=== PATIENT | male | born 1990 | race Caucasian/White ===

== ENCOUNTER 2018-10-28 02:42 | Inpatient (IN) | payer SELFPAY ==
[2018-10-28] VITALS (22 sets, daily range): BP systolic 145–196; BP diastolic 67–108; PULSE 90–108; RESP 16–23; TEMP 36.6–36.9; O2SAT 85–95; BMI 72.4; BMI 72.5
--- NOTE | 2018-10-28 02:55 | PCM.HP.STD ---
Problem List (1) Acute hypoxemic respiratory failure Status: Acute History of Present Illness Date of Admission: 10/28/18 Chief Complaint: shortness of breath The patient is a 28 year old M with a signification history of former tobacco use and super morbid obesity who presents with 2-3 weeks history of progressively worsening shortness of breath on exertion. Associated with his symptoms is substernal chest pain that is brought on by taking a deep breath. He denies any nausea. He vomited about a week ago but he attributed this to a food poisoning which the members of his family also had. He denies diaphoresis. He denies any fever or chills. Although on the day of presentation to the outside Hospital that he came from, he felt cold. Patient reports orthopnea in the last month requiring him to sleep in a recliner. Patient presented initially to [facility]. His oxygen saturation was 40-70% on room air. Emergency department doctor at [facility] to transfer patient because patient was too hypoxic to be admitted. Chest Xray [facility] showed cardiomegaly. Patient had leukocytosis with a white count of 17.4. He had a BNP of 188(normal 0-125). ABG showed PaO2 of 46 with PCO2 of 50. Bicarbonate was 32. On 3L at outside Hospital his oxygen saturation was from 86% to 92% Because patient has a large body habitus CTPA could not be done. Patient was treated with Rocephin and azithromycin for probable community acquired pneumonia On admission here on 4 L his oxygen saturation was around 89%. Patient reports that he has not seen a doctor in over 2 years. Past Medical History Allergies No Known Allergies Allergy (Verified 10/28/18 02:29) Surgical History: no surgical history Lives: Alone Smoking Status: Former smoker - He used to to tobacco but never smoked. Alcohol: Rare - *Family History Paternal History Items: Heart Disease, Hypertension Maternal History Items: Diabetes, Heart Disease, Hypertension Review of Systems Constitutional: Denies: Chills, Fever, Weight Change HEENT: Denies: Head Aches, Sinus Congestion, Sinus Drainage Cardiovascular: Reports: Chest Pain, Orthopnea. Denies: Palpitations Respiratory: Reports: Cough - chronic, Shortness of breath upon exertion. Denies: Shortness of breath at rest, Sputum production Gastrointestinal: Denies: Abdominal Pain, Nausea, Vomiting Genitourinary: Denies: Dysuria Musculoskeletal: Reports: - - Bilateral knee pain for which he has been using CBD oil.. Denies: Joint Pain Skin: Denies: Rash, Wounds Neurological: Denies: Numbness, Tingling, Focal weakness Psychiatric: Denies: Anxiety, Depression, Homicidal Ideations, Suicidal Ideations Hematologic/ Lymphatic: Denies: Easy Bruising, Easy Bleeding VTE Information - Inpt Only VTE Present on Admission: No VTE Mechan Device Prophylaxis: None VTE Pharm Prophylaxis ordered?: Yes Patient Problems: Active and Suspected Problems Acute hypoxemic respiratory failure (Acute) - Physical Exam General: Alert, Oriented x3, Cooperative HEENT: Atraumatic, PERRLA, EOMI, Normocephalic Neck: Supple, No JVD, Negative Carotid Bruits Lungs: Diminished - May be from body habitus. Cardiovascular: Regular rate, No murmurs Abdomen: Bowel Sounds Present, Soft, Non Tender Extremities: No edema, Capillary Refill Less than 3 Seconds Skin: No rashes, No breakdown Musculoskeletal: No Tenderness to Palpation of Joints or Extremities Neurological: Neuro grossly intact Psych/Mental Status: Normal Affect, Appropriate Weight: 229.064 kg Body Mass Index (BMI) 72.4 Assessment/Plan All Active Problems Acute hypoxemic respiratory failure (Acute) The patient is a 28 year old M with a signification history of former tobacco use and super morbid obesity who presents with 2-3 weeks history of progressively worsening shortness of breath on exertion and noted to have severe hypoxia with pleuritic chest pain; and leukocytosis.. Acute hypoxemic respiratory failure Etiology is unclear at this time. Chest x-ray at outside hospital was interpreted as borderline cardiomegaly. With no other abnormality but the study was suboptimal due to body habitus. Because of leukocytosis it was presumed that patient has pneumonia and Rocephin and azithromycin was started from outside hospital. We will continue Rocephin and azithromycin for probable committee acquired pneumonia. A different diagnosis includes pulmonary embolism; heart failure or other. His leukocytosis could be reactive. Of note patient has sinus tachycardia and pleuritic chest pain. He may also be having some underlying pickwickian syndrome. Supplemental oxygen to maintain saturation more than 90%. Strep pneumonia antigen and Legionella antigen ordered. Mycoplasma antigen ordered. Respiratory pathogen panel ordered. CBC and BMP in a.m. If patient does not improve consider pulmonology consult. Chest pain Chest pain is pleuritic and he associates with his shortness of breath. EKG shows sinus tach We will order cardiac enzymes for now. Hypertension Systolic blood pressure at the hospital was 165/115; 169/101; His blood pressure here was 181/108. Since his blood pressure is more than 160 we will go ahead and start him on low-dose hydrochlorothiazide. Trend blood pressure and adjust blood pressure medication. DVT prophylaxis Because of his body habitus we will start him on Lovenox 40 mg twice daily. Code Visit Inpatient E&M: 13988 Init Hosp L3
--- NOTE | 2018-10-28 02:56 | CT_ITS ---
HISTORY: SOB X 2-3 WEEKS BUT WORSE TONIGHT,HYPOXICOBESE PT 505 LBS,HARD TIME HOLDING BREATH TECHNIQUE: Helically acquired images were obtained of the chest following IV contrast as per pulmonary angiogram protocol with 3D reconstructions. A radiation dose optimization technique was used for this scan. IV Contrast dosage and agent: 100 cc Isovue-370 contrast COMPARISON: None FINDINGS: Patient obesity which limits diagnostic detail. Left lung infiltrates compatible with pneumonia with infiltrates most notable within the superior segment of the left lower lobe and posterior segment of the left upper lobe. Additional right lower lobe infiltrate. No pleural effusion. Evaluation of the pulmonary arterial system partly limited related to body habitus. The main, segmental, and visualized subsegmental pulmonary arteries appear normal. No PE. Thoracic aorta is normal in caliber without aneurysm or dissection. Cardiomegaly. No pericardial effusion. CT/CTA Chest W/WO Contrast IMPRESSION: 1. Bilateral pulmonary infiltrates, worse on the left, compatible with pneumonia. 2. Cardiomegaly. No PE. 3. Limited diagnostic detail related to patient obesity Individualized dose optimization techniques were used for this CT. at 0432 Reported and signed by: Karsten Benz MD Electronically Signed: Karsten Benz, at 4:30 EST Tel , Service support ,
--- NOTE | 2018-10-28 03:04 | HP.PCM_ITS ---
Problem List (1) Acute hypoxemic respiratory failure Status: Acute History of Present Illness Date of Admission: 10/28/18 Chief Complaint: shortness of breath The patient is a 28 year old M with a signification history of former tobacco use and super morbid obesity who presents with 2-3 weeks history of progressively worsening shortness of breath on exertion. Associated with his symptoms is substernal chest pain that is brought on by taking a deep breath. He denies any nausea. He vomited about a week ago but he attributed this to a food poisoning which the members of his family also had. He denies diaphoresis. He denies any fever or chills. Although on the day of presentation to the outside Hospital that he came from, he felt cold. Patient reports orthopnea in the last month requiring him to sleep in a recliner. Patient presented initially to [facility]. His oxygen saturation was 40- 70% on room air. Emergency department doctor at [facility] to transfer patient because patient was too hypoxic to be admitted. Chest Xray [facility] showed cardiomegaly. Patient had leukocytosis with a white count of 17.4. He had a BNP of 188(normal 0-125). ABG showed PaO2 of 46 with PCO2 of 50. Bicarbonate was 32. On 3L at outside Hospital his oxygen saturation was from 86% to 92% Because patient has a large body habitus CTPA could not be done. Patient was treated with Rocephin and azithromycin for probable community acqu ired pneumonia On admission here on 4 L his oxygen saturation was around 89%. Patient reports that he has not seen a doctor in over 2 years. Past Medical History Allergies No Known Allergies Allergy (Verified 10/28/18 02:29) Surgical History: no surgical history Lives: Alone Smoking Status: Former smoker - He used to to tobacco but never smoked. Alcohol: Rare - *Family History Paternal History Items: Heart Disease, Hypertension Maternal History Items: Diabetes, Heart Disease, Hypertension Review of Systems Constitutional: Denies: Chills, Fever, Weight Change HEENT: Denies: Head Aches, Sinus Congestion, Sinus Drainage Cardiovascular: Reports: Chest Pain, Orthopnea. Denies: Palpitations Respiratory: Reports: Cough - chronic, Shortness of breath upon exertion. Denies: Shortness of breath at rest, Sputum production Gastrointestinal: Denies: Abdominal Pain, Nausea, Vomiting Genitourinary: Denies: Dysuria Musculoskeletal: Reports: - - Bilateral knee pain for which he has been using CBD oil.. Denies: Joint Pain Skin: Denies: Rash, Wounds Neurological: Denies: Numbness, Tingling, Focal weakness Psychiatric: Denies: Anxiety, Depression, Homicidal Ideations, Suicidal Ideations Hematologic/ Lymphatic: Denies: Easy Bruising, Easy Bleeding VTE Information - Inpt Only VTE Present on Admission: No VTE Mechan Device Prophylaxis: None VTE Pharm Prophylaxis ordered?: Yes Patient Problems: Active and Suspected Problems Acute hypoxemic respiratory failure (Acute) - Physical Exam General: Alert, Oriented x3, Cooperative HEENT: Atraumatic, PERRLA, EOMI, Normocephalic Neck: Supple, No JVD, Negative Carotid Bruits Lungs: Diminished - May be from body habitus. Cardiovascular: Regular rate, No murmurs Abdomen: Bowel Sounds Present, Soft, Non Tender Extremities: No edema, Capillary Refill Less than 3 Seconds Skin: No rashes, No breakdown Musculoskeletal: No Tenderness to Palpation of Joints or Extremities Neurological: Neuro grossly intact Psych/Mental Status: Normal Affect, Appropriate Weight: 229.064 kg Body Mass Index (BMI) 72.4 Assessment/Plan All Active Problems Acute hypoxemic respiratory failure (Acute) The patient is a 28 year old M with a signification history of former tobacco use and super morbid obesity who presents with 2-3 weeks history of pr ogressively worsening shortness of breath on exertion and noted to have severe hypoxia with pleuritic chest pain; and leukocytosis.. Acute hypoxemic respiratory failure Etiology is unclear at this time. Chest x-ray at outside hospital was interpreted as borderline cardiomegaly. With no other abnormality but the study was suboptimal due to body habitus. Because of leukocytosis it was presumed that patient has pneumonia and Rocephin and azithromycin was started from outside hospital. We will continue Rocephin and azithromycin for probable committee acquired pneumonia. A different diagnosis includes pulmonary embolism; heart failure or other. His leukocytosis could be reactive. Of note patient has sinus tachycardia and pleuritic chest pain. He may also be having some underlying pickwickian syndrome. Supplemental oxygen to maintain saturation more than 90%. Strep pneumonia antigen and Legionella antigen ordered. Mycoplasma antigen ordered. Respiratory pathogen panel ordered. CBC and BMP in a.m. If patient does not improve consider pulmonology consult. Chest pain Chest pain is pleuritic and he associates with his shortness of breath. EKG shows sinus tach We will order cardiac enzymes for now. Hypertension Systolic blood pressure at the hospital was 165/115; 169/101; His blood pressure here was 181/108. Since his blood pressure is more than 160 we will go ahead and start him on low- dose hydrochlorothiazide. Trend blood pressure and adjust blood pressure medication. DVT prophylaxis Because of his body habitus we will start him on Lovenox 40 mg twice daily. Code Visit Inpatient E&M: 96982 Init Hosp L3
--- NOTE | 2018-10-28 03:04 | ECHOCS_ITS ---
Reason For Study: Dyspnea/SOB Procedure This was a 2D Doppler, Color Flow transthoracic echocardiogram. The study was technically difficult. Contrast injection was performed. Exam performed portable in ED. Left Ventricle Normal LV size. Moderate concentric left ventricular hypertrophy. Left ventricular systolic function is normal. The estimated ejection fraction is 65 %. Normal diastology for age. No regional wall motion abnormalities noted. Right Ventricle Normal RV size. Normal systolic function. Atria The left atrium is mildly enlarged. The right atrium is mildly enlarged. Mitral Valve Normal mitral valve. Tricuspid Valve Normal tricuspid valve. Aortic Valve The aortic valve is not well visualized. Pulmonic Valve Normal pulmonic valve. Great Vessels Normal aortic root. The pulmonary artery is normal size. Normal inferior vena cava. Pericardium/Pleural No pericardial effusion. Medication Definity0.2ml given slow IV push to enhance endocardial definition. MMode/2D Measurements & Calculations LVIDd: 5.2 cm IVSd: 1.6 cm Ao root diam: 3.1 cm LVIDs: 3.4 cm LVPWd: 1.3 cm RVDd: 4.3 cm FS: 34.5 % LAV(MOD-bp): 69.2 ml LVAd ap4: 35.8 cm2 SV(MOD-sp4): 78.4 ml LAV(MOD-bp) Indexed: 22.4 ml/m2 EDV(MOD-sp4): 117.0 ml LAV(MOD-sp2): 73.3 ml EDV(sp4-el): 122.3 ml LAV(MOD-sp4): 67.0 ml LVAs ap4: 19.4 cm2 ESV(MOD-sp4): 38.6 ml ESV(sp4-el): 39.8 ml EF(MOD-sp4): 67.0 % EF(sp4-el): 67.5 % SV(sp4-el): 82.5 ml LA A4 area: 23.4 cm2 LA dimension(2D): 4.7 cm RA A4 area: 26.3 cm2 Doppler Measurements & Calculations MV E max chepe: 78.0 cm/sec Lat Peak E' Chepe: 12.3 cm/sec Med Peak E' Chepe: 9.2 cm/sec MV A max chepe: 52.5 cm/sec E/E' lat: 6.3 E/E' med: 8.5 MV E/A: 1.5 Ao V2 max: 135.8 cm/sec LV V1 max: 115.2 cm/sec PA V2 max: 97.2 cm/sec Ao max P.4 mmHg LV V1 max P.3 mmHg Ao V2 mean: 96.7 cm/sec Ao mean P.2 mmHg Ao V2 VTI: 26.8 cm Interpretation Summary Normal LV size. Moderate concentric left ventricular hypertrophy. Left ventricular systolic function is normal. The estimated ejection fraction is 65 %. Normal diastology for age. Contrast injection was performed. Ordering Physician: Alexandro Treadwell Performed By: Melody Phillip RDCS, RVT
[2018-10-28 03:50] LABS: Hematocrit 44.6 % (40-54); Hemoglobin 13.3 g/dl (13.0-16.5); Mean Corp Hgb Conc 29.8 g/gl (32-36); Mean Corpuscular Hgb 22.5 pg (27.0-32.0); Mean Corpuscular Volume 75.5 fL (80-94); Mean Platelet Vol. 9.9 fl (6.2-12.0); Platelet Count 315 K/mm3 (150-450); RBC Distribution Width CV 16.1 % (11.6-14.6); RBC Distribution Width SD 44.1 fl (35.1-43.9); Red Blood Count 5.91 M/mm3 (4.6-6.2); White Blood Count 13.7 K/mm3 (4.4-11.0)
[2018-10-28 03:51] LABS: Scan Indicated on CBC? Y/N NO
[2018-10-28 04:06] LABS: Anion Gap 8 (5-15); BUN 11 mg/dL (7-18); BUN/Creat Ratio 13.1 RATIO (10-20); Calcium,Total 8.3 mg/dL (8.5-10.1); Chloride 102 mmol/L (98-107); Creatinine, Serum 0.84 mg/dL (0.70-1.30); EST Glomerular Filtration Rate 115 mL/min (>60); Est Glom Filt Rate - Afr Amer 140 mL/min (>60); Estimated Creatinine Clearance 133.98 ml/min; Glucose 113 mg/dL (74-106); Potassium 3.8 mmol/L (3.5-5.1); Sodium Level 141 mmol/L (136-145)
[2018-10-28] MEDS: hydroCHLOROthiazide 12.5mg 12.5 MG PO (04:07)
[2018-10-28] MEDS: 0.9% NaCl Peripheral Flush Adult/Peds IV ×2 (04:08→18:36)
--- NOTE | 2018-10-28 05:45 | NURSING ---
Unable to obtain admission weight due to patient unable to lay flat. Used weight from Yari Dickens that nurse gave in nurse to nurse report and patient's verbal weight. egg gatherer aware
[2018-10-28] MEDS: Ipratropium/Albuterol Sulfate 3 ML AMPUL.NEB INHALATION ×3 (06:53→19:40)
[2018-10-28] MEDS: Enoxaparin 40 MG/0.4 ML Syringe SC ×2 (10:43→21:13)
[2018-10-28] MEDS: guaiFENesin 1,200 MG Tablet 1200 MG PO ×2 (10:43→21:13)
--- NOTE | 2018-10-28 13:48 | PCM.PROGNOTE ---
<Sudhir Oseguera - Last Filed: 10/28/18 13:48> Patient Problems: Active and Suspected Problems Acute hypoxemic respiratory failure (Acute) Subjective: Pt remains SOB with exertion, at rest on O2 he denies SOB. Nursing indicates that they have observed periodic apneic events with sudden waking and gasping. BP has improved. Pt denies fever or chills. No cough. Pt denies sick contacts. No further chest pain. - Physical Exam General: Alert, Oriented x3, Cooperative HEENT: Atraumatic, PERRLA, EOMI, Normocephalic Neck: Supple, No JVD, Negative Carotid Bruits Lungs: Clear to auscultation, Normal air movement, Rales - faint rales BL bases Cardiovascular: Regular rate, No murmurs Abdomen: Bowel Sounds Present, Soft, Non Tender, Obese Extremities: No edema, Capillary Refill Less than 3 Seconds Skin: No rashes, No breakdown Musculoskeletal: No Tenderness to Palpation of Joints or Extremities Neurological: Cranial nerves II-XII grossly intact Psych/Mental Status: Normal Affect, Appropriate, Alert and oriented to time, place, person, mood and affect Vital Signs Temp Pulse Resp BP Pulse Ox 97.8 F 96 18 160/90 H 94 10/28/18 10:32 10/28/18 12:54 10/28/18 12:54 10/28/18 10:32 10/28/18 10:32 Oxygen Flow Rate (L/min) 5 Oxygen Delivery Method Nasal Cannula Weight: 504 lb 15.994 oz Body Mass Index (BMI) 72.4 Intake and Output for Last 24 Hours 10/26/18 10/27/18 10/28/18 23:59 23:59 23:59 Intake Total 120 / 120 Balance 120 / 120 Microbiology Past 72 Hours 10/28/18 08:31 Respiratory Panel (PCR) - Final Mucosa - Nasopharyngeal 10/28/18 06:35 Legionella Antigen - Final Urine, Clean Catch 10/28/18 06:35 Streptococcus pneumoniae Antigen (M - Final Urine, Clean Catch Laboratory Tests Past 24 Hrs 10/28/18 10/28/18 10/28/18 03:36 03:36 03:36 WBC 13.7 H RBC 5.91 Hgb 13.3 Hct 44.6 MCV 75.5 L MCH 22.5 L MCHC 29.8 L RDW 16.1 H RDW Differential 44.1 H Plt Count 315 MPV 9.9 Sodium 141 Potassium 3.8 Chloride 102 Carbon Dioxide 31.0 Anion Gap 8 BUN 11 Creatinine 0.84 Estim Creat Clear Calc 133.98 Est GFR (MDRD) Af Amer 140 Est GFR (MDRD) Non-Af 115 BUN/Creatinine Ratio 13.1 Glucose 113 H Calcium 8.3 L Troponin I 0.040 Mycoplasma pneumon IgG Pending Mycoplasma pneumon IgM Pending 10/28/18 10/28/18 06:00 09:00 WBC RBC Hgb Hct MCV MCH MCHC RDW RDW Differential Plt Count MPV Sodium Potassium Chloride Carbon Dioxide Anion Gap BUN Creatinine Estim Creat Clear Calc Est GFR (MDRD) Af Amer Est GFR (MDRD) Non-Af BUN/Creatinine Ratio Glucose Calcium Troponin I 0.037 0.026 Mycoplasma pneumon IgG Mycoplasma pneumon IgM Medical Necessity - Tobacco Use Smoking Status: Former smoker - He used to to tobacco but never smoked. Assessment/Plan All Active Problems Acute hypoxemic respiratory failure (Acute) 1. Acute hypoxic respiratory failure 2/2 Acute sepsis 2/2 BL CAP - presumed Streptococcal, continue rocephin and azithro. Urine antigens neg, resp panel neg, mycoplasma antigen pending. Sputum culture if he is able to provide one. Wean O2 as tolerated. He does not use this at home, but was saturating supposedly in the 40s at the time of admission. Continue mucinex, IS/PEP therapy. 2. HTN - improved. Will need DC on antihtn meds. 3. Chest pain - negative EKG, negative tele, negative troponin x3. No further workup. CP is explained by pna, and no longer present. 4. Suspected sleep apnea/obesity hypoventilation syndrome - he has multiple risk factors for JANET and has been observed having classic apneic episodes while here by nursing staff. He needs a sleep study after DC and after pna resolved. 5. Morbid obesity - dietary eval/counselling. DVT ppx: lovenox DC planning: pt will likely not need PTOT, however may need home O2 depending on his course. This patient was seen by Sudhir Oseguera PA-C under the supervision of Doctor Faraz. <Jer Ruth F - Last Filed: 10/28/18 14:13> - Physical Exam Vital Signs Temp Pulse Resp BP Pulse Ox 97.8 F 96 18 160/90 H 94 10/28/18 10:32 10/28/18 12:54 10/28/18 12:54 10/28/18 10:32 10/28/18 10:32 Oxygen Flow Rate (L/min) 5 Oxygen Delivery Method Nasal Cannula Weight: 504 lb 15.994 oz Body Mass Index (BMI) 72.4 Intake and Output for Last 24 Hours 10/26/18 10/27/18 10/28/18 23:59 23:59 23:59 Intake Total 120 / 120 Balance 120 / 120 Microbiology Past 72 Hours 10/28/18 08:31 Respiratory Panel (PCR) - Final Mucosa - Nasopharyngeal 10/28/18 06:35 Legionella Antigen - Final Urine, Clean Catch 10/28/18 06:35 Streptococcus pneumoniae Antigen (M - Final Urine, Clean Catch Laboratory Tests Past 24 Hrs 10/28/18 10/28/18 10/28/18 03:36 03:36 03:36 WBC 13.7 H RBC 5.91 Hgb 13.3 Hct 44.6 MCV 75.5 L MCH 22.5 L MCHC 29.8 L RDW 16.1 H RDW Differential 44.1 H Plt Count 315 MPV 9.9 Sodium 141 Potassium 3.8 Chloride 102 Carbon Dioxide 31.0 Anion Gap 8 BUN 11 Creatinine 0.84 Estim Creat Clear Calc 133.98 Est GFR (MDRD) Af Amer 140 Est GFR (MDRD) Non-Af 115 BUN/Creatinine Ratio 13.1 Glucose 113 H Calcium 8.3 L Troponin I 0.040 Mycoplasma pneumon IgG Pending Mycoplasma pneumon IgM Pending 10/28/18 10/28/18 06:00 09:00 WBC RBC Hgb Hct MCV MCH MCHC RDW RDW Differential Plt Count MPV Sodium Potassium Chloride Carbon Dioxide Anion Gap BUN Creatinine Estim Creat Clear Calc Est GFR (MDRD) Af Amer Est GFR (MDRD) Non-Af BUN/Creatinine Ratio Glucose Calcium Troponin I 0.037 0.026 Mycoplasma pneumon IgG Mycoplasma pneumon IgM Code Visit Addendum: Dr. Ruth I personally examined the patient and reviewed the chart. I agree with the above. 28-year-old morbidly obese male with no previous past medical history presenting with acute hypoxic respiratory failure secondary to bilateral pulmonary infiltrates. He is currently receiving Rocephin and azithromycin for community-acquired pneumonia, strep antigen and Legionella antigen were both negative and respiratory viral panel was also completely negative. Of note, given his size it is suspected that he has obstructive sleep apnea, especially since multiple nurses have witnessed him stop breathing while sleeping. Also he is hypertensive, and I am unsure as to the duration however he is currently on 12.5 mg of hydrochlorothiazide daily and will likely need additional agents prior to discharge. Inpatient E&M: 82933 Subs Hosp L2
[2018-10-28] MEDS: Ceftriaxone 1 GM/50 ML BAG IV (19:52)
[2018-10-29] VITALS (18 sets, daily range): BP systolic 138–161; BP diastolic 74–108; PULSE 82–107; RESP 14–22; TEMP 36.7–37; O2SAT 81–98
[2018-10-29] MEDS: Ipratropium/Albuterol Sulfate 3 ML AMPUL.NEB INHALATION ×4 (00:30→19:11)
[2018-10-29 06:41] LABS: Absolute Lymphocyte Count 2.06 X10^3/ul (0.83-4.51); Basophil# 0.04 X10^3/uL; Basophil% 0.4 % (0-1); Eosinophil# 0.24 X10^3/uL; Eosinophils% 2.1 % (0-5); Hematocrit 48.4 % (40-54); Hemoglobin 13.9 g/dl (13.0-16.5); Lymphocyte # 2.06 X10^3/ul (4.0); Lymphocyte % 18.4 % (19-41); Mean Corp Hgb Conc 28.7 g/gl (32-36); Mean Corpuscular Hgb 22.3 pg (27.0-32.0); Mean Corpuscular Volume 77.6 fL (80-94); Mean Platelet Vol. 10.6 fl (6.2-12.0); Monocyte# 0.74 X10^3/uL; Monocyte% 6.6 % (0-10); Neutrophil # 7.97 X10^3/uL (2.7-7.7); Platelet Count 340 K/mm3 (150-450); RBC Distribution Width CV 17.6 % (11.6-14.6); RBC Distribution Width SD 48.2 fl (35.1-43.9); Red Blood Count 6.24 M/mm3 (4.6-6.2); White Blood Count 11.2 K/mm3 (4.4-11.0)
[2018-10-29 06:42] LABS: POSITIVE COUNT NO; POSITIVE DIFFERENTIAL NO; POSITIVE MORPHOLOGY NO
[2018-10-29] MEDS: hydroCHLOROthiazide 12.5mg 12.5 MG PO (09:07)
[2018-10-29] MEDS: Enoxaparin 40 MG/0.4 ML Syringe SC ×2 (09:07→21:05)
[2018-10-29] MEDS: guaiFENesin 1,200 MG Tablet 1200 MG PO ×2 (09:07→21:05)
--- NOTE | 2018-10-29 12:00 | CASEMGMT ---
DAHLIA SAMANIEGO assessment: Face to Face with patient for initial transition planning/care coordination assessment. DAHLIA SAMANIEGO introduced self and role at [facility], pt voices understanding and consents to assessment at this time. Pt is sitting up in chair in no distress at this time. Pt is A/O x4 at this time and answers all questions appropriately at this time. Care providers, pharmacy, and demographics verified/updated at this time. PCP: Pt states does not currently have PCP as his retired but plans to see a PCP in [place]. Specialists: Pt states currently has no specialists. Preferred Pharmacy: [facility] Insurance: Pt states does not have insurance coverage at this time. Pt already met with financial counselor and SW in regards to self-pay status. Prescription Benefit: None Living Will/HPOA: Pt states does not have LW/HPOA and declines info at this time. LNOK: Ekta Cano, mother Living Arrangements: Pt states lives alone in a house and states no concerns at home at this time. Transportation: Pt states drives self and states no transportation concerns at this time. DME/HHC: Pt states no current DME or need for any at this time. Pt states no hx of SNF or HHC. Pt states no concerns with going home at time of discharge. 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 Pt states no further concerns/needs at this time. Advised pt to ask for CM if any further questions/concerns/needs arise, voices understanding. Plan: [place] DAHLIA SAMANIEGO
--- NOTE | 2018-10-29 14:36 | CASEMGMT ---
Social Work: Referral for self pay status. Spoke to patient in room. Patient states that he does not have health insurance because he works for [employer] which is his families business and they do not provide insurance. Patient states that he spoke with a patient relations representative from [facility] this morning on the phone and per patient, it appears that he is over resources for Medicaid or the hospital's charles program. Patient states that [facility] patient relations representative advised patient to call hospital once bill has been received to discuss possible payment plan. Patient does not currently have a PCP as his PCP retired. Patient states that he will be going to a nurse practitioner in [facility] that his former PCP suggested. No other SW needs identified. ROBLES Ardon
--- NOTE | 2018-10-29 14:49 | PN_ITS ---
Patient Problems: Active and Suspected Problems Acute hypoxemic respiratory failure (Acute) Subjective: Breathing improved. No chest heaviness. No fever or chills. No cough. No LE edema. He remains on O2. - Physical Exam General: Alert, Oriented x3, Cooperative HEENT: Atraumatic, PERRLA, EOMI, Normocephalic Neck: Supple, No JVD, Negative Carotid Bruits Lungs: Rales Cardiovascular: Regular rate, No murmurs Abdomen: Bowel Sounds Present, Soft, Non Tender Extremities: No edema, Capillary Refill Less than 3 Seconds Skin: No rashes, No breakdown Musculoskeletal: No Tenderness to Palpation of Joints or Extremities Neurological: Cranial nerves II-XII grossly intact Psych/Mental Status: Normal Affect, Appropriate, Alert and oriented to time, place, person, mood and affect Vital Signs Temp Pulse Resp BP Pulse Ox 98.1 F 100 22 H 150/79 H 94 10/29/18 10:45 10/29/18 14:03 10/29/18 14:03 10/29/18 10:45 10/29/18 14:17 Oxygen Flow Rate (L/min) 3 Oxygen Delivery Method Nasal Cannula Weight: 504 lb 15.994 oz Body Mass Index (BMI) 72.4 Intake and Output for Last 24 Hours 10/27/18 10/28/18 10/29/18 23:59 23:59 23:59 Intake Total 480 / 480 1616 / 1616 Balance 480 / 480 1616 / 1616 Microbiology Past 72 Hours 10/28/18 08:31 Respiratory Panel (PCR) - Final Mucosa - Nasopharyngeal 10/28/18 06:35 Legionella Antigen - Final Urine, Clean Catch 10/28/18 06:35 Streptococcus pneumoniae Antigen (M - Final Urine, Clean Catch Laboratory Tests Past 24 Hrs 10/29/18 05:35 WBC 11.2 H RBC 6.24 H Hgb 13.9 Hct 48.4 MCV 77.6 L MCH 22.3 L MCHC 28.7 L RDW 17.6 H RDW Differential 48.2 H Plt Count 340 MPV 10.6 Immature Gran % (Auto) 1.500 H Neut % (Auto) 71.0 H Lymph % (Auto) 18.[address] [place] % (Auto) 6.6 Eos % (Auto) 2.1 Baso % (Auto) 0.4 Absolute Neuts (auto) 8.0 H Absolute Lymphs (auto) 2.06 Total Counted Not Reportable Medical Necessity - Tobacco Use Smoking Status: Former smoker - He used to to tobacco but never smoked. Assessment/Plan All Active Problems Acute hypoxemic respiratory failure (Acute) 1. Acute hypoxic respiratory failure 2/2 Acute sepsis 2/2 BL CAP - presumed Streptococcal, continue rocephin and azithro. Urine antigens neg, resp panel neg, mycoplasma antigen pending. Sputum culture if he is able to provide one. Wean O2 as tolerated. He does not use this at home, but was saturating supposedly in the 40s at the time of admission. Continue mucinex, IS/PEP therapy. CXR in the AM. Echo is unremarkable. 2. HTN - improved. increase to 25 mg HCTZ. Will need DC on antihtn meds. 3. Chest pain - negative EKG, negative tele, negative troponin x3. No further workup. CP is explained by pna, and no longer present. 4. Suspected sleep apnea/obesity hypoventilation syndrome - he has multiple risk factors for JANET and has been observed having classic apneic episodes while here by nursing staff. He needs a sleep study after DC and after pna resolved. 5. Morbid obesity - dietary eval/counselling. DVT ppx: lovenox DC planning: pt will likely not need PTOT, however may need home O2 depending on his course. This patient was seen by Sudhir Oseguera PA-C under the supervision of Doctor Cordova.
[2018-10-29] MEDS: Ceftriaxone 1 GM/50 ML BAG IV (21:05)
[2018-10-30] VITALS (11 sets, daily range): BP systolic 129–164; BP diastolic 60–94; PULSE 90–105; RESP 16–22; TEMP 36.9–37.2; O2SAT 88–95
[2018-10-30] MEDS: Ipratropium/Albuterol Sulfate 3 ML AMPUL.NEB INHALATION ×3 (01:03→13:50)
[2018-10-30 06:58] LABS: Absolute Lymphocyte Count 1.63 X10^3/ul (0.83-4.51); Absolute Neutrophil Count 5.6 X10^3/uL (2.0-7.7); Basophil# 0.04 X10^3/uL; Basophil% 0.5 % (0-1); Eosinophil# 0.15 X10^3/uL; Eosinophils% 1.9 % (0-5); Hematocrit 48.1 % (40-54); Lymphocyte # 1.63 X10^3/ul (4.0); Lymphocyte % 20.2 % (19-41); Mean Corp Hgb Conc 29.1 g/gl (32-36); Mean Corpuscular Hgb 22.3 pg (27.0-32.0); Mean Corpuscular Volume 76.7 fL (80-94); Mean Platelet Vol. 10.1 fl (6.2-12.0); Monocyte# 0.55 X10^3/uL; Monocyte% 6.8 % (0-10); Neutrophil # 5.64 X10^3/uL (2.7-7.7); Neutrophil % 69.7 % (47-70); Platelet Count 305 K/mm3 (150-450); RBC Distribution Width CV 17.4 % (11.6-14.6); RBC Distribution Width SD 47.2 fl (35.1-43.9); Red Blood Count 6.27 M/mm3 (4.6-6.2); White Blood Count 8.1 K/mm3 (4.4-11.0)
[2018-10-30 07:01] LABS: POSITIVE COUNT NO; POSITIVE DIFFERENTIAL NO; POSITIVE MORPHOLOGY NO
[2018-10-30] MEDS: hydroCHLOROthiazide 25 MG Tablet PO (09:16)
[2018-10-30] MEDS: guaiFENesin 1,200 MG Tablet 1200 MG PO (09:16)
--- NOTE | 2018-10-30 09:55 | RAD_ITS ---
STUDY: X-RAY CHEST REASON FOR EXAM: Male, 28 years old. Shortness of breath/dyspnea. TECHNIQUE: Single AP portable view of the chest. COMPARISON: None. FINDINGS: EKG electrodes are seen. There is evidence of vascular congestion and mild degree of CHF. There is no demonstrated pleural abnormality. There is moderate cardiac enlargement. Normal mediastinum and arlette. Normal visualized pulmonary arteries. Normal visualized aortic arch and descending thoracic aorta. Normal visualized thoracic spine. Normal visualized ribs, clavicles, and shoulders. There is no demonstrated abnormality of the visualized soft tissue structures of the upper abdomen. RAD/Chest PA and Lateral IMPRESSION: Basilar congestion and CHF. Electronically Signed: Ramos Rosado MD at 10:27 EST Tel [phone], Service support ,
--- NOTE | 2018-10-30 11:16 | PCM.DC ---
- Discharge Diagnoses Current Active Problems: Current Active and Chronic Problems Acute hypoxemic respiratory failure (Acute) You will use the following diet at home:: Cardiac Your food should be the consistency of: Regular Your liquids should be the consistency of: Regular/Thin Discharge Activity: Return to Normal Activity, - Additional Dressing/Incision Instructions:: Use O2 as directed, new oxygen retest in 2 weeks at either [facility] or [facility]. Allergies/Adverse Reactions: Allergies No Known Allergies Allergy (Verified 10/28/18 02:29) Medications to take at Discharge Hydrochlorothiazide [Hctz] 25 mg PO DAILY #30 tablet 10/30/18 levoFLOXacin tablet [Levaquin tablet] 750 mg PO DAILY #7 tablet 10/30/18 The following prescriptions were given: levoFLOXacin tablet [Levaquin tablet] 750 mg PO DAILY #7 tablet Test Results: Test results from this visit will be discussed in further detail at your follow-up appointment, if applicable. Please Follow Up With: New PCP When: 1-2 weeks Proposed Discharge Date: 10/30/18
--- NOTE | 2018-10-30 11:20 | DCINST_ITS ---
- Discharge Diagnoses Current Active Problems: Current Active and Chronic Problems Acute hypoxemic respiratory failure (Acute) You will use the following diet at home:: Cardiac Your food should be the consistency of: Regular Your liquids should be the consistency of: Regular/Thin Discharge Activity: Return to Normal Activity, - Additional Dressing/Incision Instructions:: Use O2 as directed, new oxygen retest in 2 weeks at either [facility] or [facility]. Allergies/Adverse Reactions: Allergies No Known Allergies Allergy (Verified 10/28/18 02:29) Medications to take at Discharge Hydrochlorothiazide [Hctz] 25 mg PO DAILY #30 tablet 10/30/18 levoFLOXacin tablet [Levaquin tablet] 750 mg PO DAILY #7 tablet 10/30/18 The following prescriptions were given: levoFLOXacin tablet [Levaquin tablet] 750 mg PO DAILY #7 tablet Test Results: Test results from this visit will be discussed in further detail at your follow- up appointment, if applicable. Please Follow Up With: New PCP When: 1-2 weeks Proposed Discharge Date: 10/30/18
--- NOTE | 2018-10-30 11:24 | CASEMGMT ---
Addendum entered by Manasa Valencia 10/30/18 11:33: Call to [facility] and they state shuttle truck driver will be en route with oxygen tank. Halima VILLAGOMEZ CM Original Note: Per Susana VILLAGOMEZ, pt does qualify for home oxygen at this time. Pt advised prices of local DME [employer] for self pay and referral faxed to [facility] at this time. Pt plans to f/u with HEAD LOADER at [facility] for PCP, but provided with script for ambulatory pulse ox so that he can f/u with [facility] pulmonary services, if can't get into new PCP in time. Halima VILLAGOMEZ CM
[2018-10-30] MEDS: 0.9% NaCl Peripheral Flush Adult/Peds IV (11:40)
[2018-10-30] MEDS: Ceftriaxone 1 GM/50 ML BAG IV (11:40)
--- NOTE | 2018-10-30 11:48 | PHA.DC.MC ---
Pharmacy Service has performed discharge medication reconciliation and counseling for this patient. The patient's discharge medication list was reviewed for discrepancies and discrepancies were resolved. The patient was counseled on the following discharge medications and changes in medications for homegoing were reviewed. The Reason for Use, instructions for use, and potential side effects were reviewed for all new medications. The patient's questions regarding all of their medications were answered. The patient was able to verbally demonstrate an understanding of their discharge medications. Home Medications Hydrochlorothiazide [Hctz] 25 mg PO DAILY #30 tablet 10/30/18 levoFLOXacin tablet [Levaquin tablet] 750 mg PO DAILY #7 tablet 10/30/18
--- NOTE | 2018-10-30 14:44 | PCM.DC.SUM ---
Discharge Date and Diagnosis Date of Admission: 10/28/18 Date of Discharge: 10/30/18 - Primary Discharge Diagnosis Acute hypoxic respiratory failure 2/2 Acute sepsis 2/2 BL CAP - presumed streptococcal HTN - newly dx. Suspected JANET/OHS Morbid obesity. Hospital Course and Treatment Imaging Results: 10/30/18 09:55 Chest PA and Lateral [RAD] AM (NON MEDS) CT/CTA Chest W/WO Contrast IMPRESSION: 1. Bilateral pulmonary infiltrates, worse on the left, compatible with pneumonia. 2. Cardiomegaly. No PE. 3. Limited diagnostic detail related to patient obesity Individualized dose optimization techniques were used for this CT. Echo: Interpretation Summary Normal LV size. Moderate concentric left ventricular hypertrophy. Left ventricular systolic function is normal. The estimated ejection fraction is 65 %. Normal diastology for age. Contrast injection was performed. RAD/Chest PA and Lateral IMPRESSION: Basilar congestion and CHF. Operations: None Procedures: 2-D Echocardiogram Summary of Care Provided: Hospital Course: The patient is a 28 year old M with hx of chewing tobacco use who presented to the [place] ER with SOB and was found to be hypoxic as low as in the 40's. He was transferred here for admission. He had a CTA with BL pna. He was admitted to the monitored floor with sepsis 2/2 BL CAP with leukocytosis, tachycardia, and was placed on rocephin and azithromycin, and O2 via [place]. He had some chest discomfort which was attributed to pleurisy - EKG and tele were negative, and trop x 3 were neg. He underwent an echo that was unremarkable. He had uncontrolled HTN and was placed on HCTZ. He was unable to be weaned off O2. He required O2 at rest and exertion. He was transitioned to PO levaquin for DC and will have 7 more days for a total of 10 days of therapy. He was discharged home in stable condition. He will f/u with his LOAN REVIEW OFFICER at [facility], and have a repeat 6 minute O2 eval in 2 weeks. This patient was seen by Sudhir Oseguera PA-C under the supervision of Dr. Cordova. [] - Physical Exam General: Alert, Oriented x3, Cooperative HEENT: Atraumatic, PERRLA, EOMI, Normocephalic Neck: Supple, No JVD, Negative Carotid Bruits Lungs: Clear to auscultation, Normal air movement Cardiovascular: Regular rate, No murmurs Abdomen: Bowel Sounds Present, Soft, Non Tender Extremities: No edema, Capillary Refill Less than 3 Seconds Skin: No rashes, No breakdown Musculoskeletal: No Tenderness to Palpation of Joints or Extremities Neurological: Cranial nerves II-XII grossly intact Psych/Mental Status: Normal Affect, Appropriate, Alert and oriented to time, place, person, mood and affect Vital Signs Temp Pulse Resp BP Pulse Ox 98.7 F 90 20 H 129/60 H 93 10/30/18 13:33 10/30/18 13:47 10/30/18 13:47 10/30/18 13:33 10/30/18 13:33 Oxygen Flow Rate (L/min) 2 Oxygen Delivery Method Nasal Cannula Weight: 504 lb 15.994 oz Body Mass Index (BMI) 72.4 Intake and Output for Last 24 Hours 10/28/18 10/29/18 10/30/18 23:59 23:59 23:59 Intake Total 480 / 480 2396 / 2396 620 / 620 Balance 480 / 480 2396 / 2396 620 / 620 Microbiology Past 72 Hours 10/28/18 08:31 Respiratory Panel (PCR) - Final Mucosa - Nasopharyngeal 10/28/18 06:35 Legionella Antigen - Final Urine, Clean Catch 10/28/18 06:35 Streptococcus pneumoniae Antigen (M - Final Urine, Clean Catch Laboratory Tests Past 24 Hrs 10/30/18 05:55 WBC 8.1 RBC 6.27 H Hgb 14.0 Hct 48.1 MCV 76.7 L MCH 22.3 L MCHC 29.1 L RDW 17.4 H RDW Differential 47.2 H Plt Count 305 MPV 10.1 Immature Gran % (Auto) 0.900 Neut % (Auto) 69.7 Lymph % (Auto) 20.2 [place] % (Auto) 6.8 Eos % (Auto) 1.9 Baso % (Auto) 0.5 Absolute Neuts (auto) 5.6 Absolute Lymphs (auto) 1.63 Total Counted Not Reportable Discharge Diet: Low fat/ Low Cholesterol, 2000 mg Sodium Diet Discharge Activity: Return to Normal Activity, - Additional Dressing/Incision Instructions:: Use O2 as directed, new oxygen retest in 2 weeks at either [facility] or [facility]. Home Medications: Medications to take at Discharge Hydrochlorothiazide [Hctz] 25 mg PO DAILY #30 tablet 10/30/18 levoFLOXacin tablet [Levaquin tablet] 750 mg PO DAILY #7 tablet 10/30/18 Following Prescrptions Were Given to Patient: levoFLOXacin tablet [Levaquin tablet] 750 mg PO DAILY #7 tablet Primary Care Physician: Iglesia Mayen MD [Primary Care Provider] - Please Follow Up With: New PCP - (LOAN REVIEW OFFICER) When: 1-2 weeks Please Follow Up With: [facility] pulmonary services When: for f/u ambulatory oxygen test if you cannot get into new PCP Please Follow Up With: Iglesia Mayen MD Disposition: Home Minutes spent on discharge:: 35 Patient Condition:: Stable Medical Necessity - Tobacco Use Smoking Status: Former smoker - He used to to tobacco but never smoked. Meaningful Use Info Meaningful Use Diagnoses (Choose all that apply): None applicable
--- NOTE | 2018-10-30 14:51 | DS.PCM_ITS ---
Discharge Date and Diagnosis Date of Admission: 10/28/18 Date of Discharge: 10/30/18 - Primary Discharge Diagnosis Acute hypoxic respiratory failure 2/2 Acute sepsis 2/2 BL CAP - presumed streptococcal HTN - newly dx. Suspected AJNET/OHS Morbid obesity. Hospital Course and Treatment Imaging Results: 10/30/18 09:55 Chest PA and Lateral [RAD] AM (NON MEDS) CT/CTA Chest W/WO Contrast IMPRESSION: 1. Bilateral pulmonary infiltrates, worse on the left, compatible with pneumonia. 2. Cardiomegaly. No PE. 3. Limited diagnostic detail related to patient obesity Individualized dose optimization techniques were used for this CT. Echo: Interpretation Summary Normal LV size. Moderate concentric left ventricular hypertrophy. Left ventricular systolic function is normal. The estimated ejection fraction is 65 %. Normal diastology for age. Contrast injection was performed. RAD/Chest PA and Lateral IMPRESSION: Basilar congestion and CHF. Operations: None Procedures: 2-D Echocardiogram Summary of Care Provided: Hospital Course: The patient is a 28 year old M with hx of chewing tobacco use who presented to the [place] ER with SOB and was found to be hypoxic as low as in the 40's. He was transferred here for admission. He had a CTA with BL pna. He was admitted to the monitored floor with sepsis 2/2 BL CAP with leukocytosis, tachycardia, and was placed on rocephin and azithromycin, and O2 via [place]. He had some chest discomfort which was attributed to pleurisy - EKG and tele were negative, and trop x 3 were neg. He underwent an echo that was unremarkable. He had uncontrolled HTN and was placed on HCTZ. He was unable to be weaned off O2. He required O2 at rest and exertion. He was transitioned to PO levaquin for DC and will have 7 more days for a total of 10 days of therapy. He was discharged home in stable condition. He will f/u with his [employer] ARCHITECT at [facility], and have a repeat 6 minute O2 eval in 2 weeks. This patient was seen by Sudhir Oseguera PA-C under the supervision of Dr. Cordova. [] - Physical Exam General: Alert, Oriented x3, Cooperative HEENT: Atraumatic, PERRLA, EOMI, Normocephalic Neck: Supple, No JVD, Negative Carotid Bruits Lungs: Clear to auscultation, Normal air movement Cardiovascular: Regular rate, No murmurs Abdomen: Bowel Sounds Present, Soft, Non Tender Extremities: No edema, Capillary Refill Less than 3 Seconds Skin: No rashes, No breakdown Musculoskeletal: No Tenderness to Palpation of Joints or Extremities Neurological: Cranial nerves II-XII grossly intact Psych/Mental Status: Normal Affect, Appropriate, Alert and oriented to time, place, person, mood and affect Vital Signs Temp Pulse Resp BP Pulse Ox 98.7 F 90 20 H 129/60 H 93 10/30/18 13:33 10/30/18 13:47 10/30/18 13:47 10/30/18 13:33 10/30/18 13:33 Oxygen Flow Rate (L/min) 2 Oxygen Delivery Method Nasal Cannula Weight: 504 lb 15.994 oz Body Mass Index (BMI) 72.4 Intake and Output for Last 24 Hours 10/28/18 10/29/18 10/30/18 23:59 23:59 23:59 Intake Total 480 / 480 2396 / 2396 620 / 620 Balance 480 / 480 2396 / 2396 620 / 620 Microbiology Past 72 Hours 10/28/18 08:31 Respiratory Panel (PCR) - Final Mucosa - Nasopharyngeal 10/28/18 06:35 Legionella Antigen - Final Urine, Clean Catch 10/28/18 06:35 Streptococcus pneumoniae Antigen (M - Final Urine, Clean Catch Laboratory Tests Past 24 Hrs 10/30/18 05:55 WBC 8.1 RBC 6.27 H Hgb 14.0 Hct 48.1 MCV 76.7 L MCH 22.3 L MCHC 29.1 L RDW 17.4 H RDW Differential 47.2 H Plt Count 305 MPV 10.1 Immature Gran % (Auto) 0.900 Neut % (Auto) 69.7 Lymph % (Auto) 20.2 [place] % (Auto) 6.8 Eos % (Auto) 1.9 Baso % (Auto) 0.5 Absolute Neuts (auto) 5.6 Absolute Lymphs (auto) 1.63 Total Counted Not Reportable Discharge Diet: Low fat/ Low Cholesterol, 2000 mg Sodium Diet Discharge Activity: Return to Normal Activity, - Additional Dressing/Incision Instructions:: Use O2 as directed, new oxygen retest in 2 weeks at either [facility] or [facility]. Home Medications: Medications to take at Discharge Hydrochlorothiazide [Hctz] 25 mg PO DAILY #30 tablet 10/30/18 levoFLOXacin tablet [Levaquin tablet] 750 mg PO DAILY #7 tablet 10/30/18 Following Prescrptions Were Given to Patient: levoFLOXacin tablet [Levaquin tablet] 750 mg PO DAILY #7 tablet Primary Care Physician: Iglesia Mayen MD [Primary Care Provider] - Please Follow Up With: New PCP - ([employer] ARCHITECT) When: 1-2 weeks Please Follow Up With: [facility] pulmonary services When: for f/u ambulatory oxygen test if you cannot get into new PCP Please Follow Up With: Iglesai Mayen MD Disposition: Home Minutes spent on discharge:: 35 Patient Condition:: Stable Medical Necessity - Tobacco Use Smoking Status: Former smoker - He used to to tobacco but never smoked. Meaningful Use Info Meaningful Use Diagnoses (Choose all that apply): None applicable
[2018-11-01 08:40] LABS: Mycoplasma Pneum AB IgG 823 U/mL (0-99); Mycoplasma pneum. AB IgM < 770 U/mL (0-769)
--- OUTSIDE RECORDS SUMMARY | 2018-12-21 22:17 | XMS RPT_ITS ---
:1990 Author Organization OH[facility] Care Team Providers Name Role Phone Alexandro Treadwell Admitting Unavailable Charli Cordova Attending Unavailable Nelda Mayen Primary Care Unavailable Alexandro Treadwell Admitting Unavailable AgAlexandro cox Attending Unavailable Alexandro Treadwell Consulting Unavailable Alexandro Treadwell Admitting Unavailable Nelda Mayen Primary Care Unavailable Charli Cordova Consulting Unavailable Charli Cordova Attending Unavailable Alexandro Treadwell Admitting Unavailable Nelda Mayen Primary Care Unavailable Charli Cordova Consulting Unavailable Charli Cordova Attending Unavailable DR. NATALIO BURGER DO Attending Unavailable MISSY OG, NELDA Primary Care Unavailable KATEY TRIPATHI MD Consulting Unavailable PROBLEMS PROBLEMS DATE TYPE CONDITION / CODE ATTENDING STATUS SOURCE 11/09/2018 Unknown J96.01 - Acute Tereletsjason, Active Michael respiratory Charli Community failure with Hospital hypoxia / Repository J96.01(ICD-10) PROCEDURES PROCEDURES No Procedure Records FoundRESULTS RESULTS DISCHARGE SUMMARY Observed: 11/01/2018 Status: F Source: [place] 9:06 AM [facility] REPOSITORY [facility] Medical Records Department [address] [place] [address] Discharge Summary 10/30/18 1444 MR#: [id number] Acct: [id number] Name: MYNOR VALERIO Rep #: [id number] : 1990 28 From: Sudhir PINTO PCP: Nelda Mayen MD Status: DIS IN Y Location: [place] [address]-1 ADDENDUM by Charli Cordova DO on 11/01/18 at 0906 Code Visit Patient was seen and examined independently of Sudhir Oseguera on 10/30/18, he still requires supplemental oxygen to maintain his pulse ox above 88%. Physical exam: On examination he appeared in good health and spirits. Vital signs as documented. Skin warm and dry and without overt rashes. Neck without JVD. Lungs clear, breath sounds are distant. Heart exam notable for regular rhythm, normal sounds and absence of murmurs, rubs or gallops. Abdomen unremarkable and without evidence of organomegaly, masses, or abdominal aortic enlargement. Extremities nonedematous. Neuro: Cranial nerves II through XII are grossly intact, no focal motor deficits were noted. Psych: Patient is alert and oriented x3, he does not appear anxious or depressed On 10/30/18, patient was seen and examined and discharged in stable condition to home. I have reviewed Sudhir Oumar's discharge summary including his assessment and medical plan of care and endorse it. Inpatient E AND M: [id number] Disch Hosp 11/01/18 0906 <Electronically signed by Charli Cordova DO> Date Charli Cordova DO cc: BLAIR Oseguera; Charli Cordova DO; Nelda Mayen MD * Signed Discharge Date and Diagnosis Date of Admission: 10/28/18 Date of Discharge: 10/30/18 - Primary Discharge Diagnosis Acute hypoxic respiratory failure 2/2 Acute sepsis 2/2 BL CAP - presumed streptococcal HTN - newly dx. Suspected JANET/OHS Morbid obesity. Hospital Course and Treatment Imaging Results: 10/30/18 09:55 Chest PA and Lateral [RAD] AM (NON MEDS) CT/CTA Chest W/WO Contrast IMPRESSION: 1. Bilateral pulmonary infiltrates, worse on the left, compatible with pneumonia. 2. Cardiomegaly. No PE. 3. Limited diagnostic detail related to patient obesity Individualized dose optimization techniques were used for this CT. Echo: Interpretation Summary Normal LV size. Moderate concentric left ventricular hypertrophy. Left ventricular systolic function is normal. The estimated ejection fraction is 65 %. Normal diastology for age. Contrast injection was performed. RAD/Chest PA and Lateral IMPRESSION: Basilar congestion and CHF. Operations: None Procedures: 2-D Echocardiogram Summary of Care Provided: Hospital Course: The patient is a 28 year old M with hx of chewing tobacco use who presented to the [facility] with SOB and was found to be hypoxic as low as in the 40's. He was transferred here for admission. He had a CTA with BL pna. He was admitted to the monitored floor with sepsis 2/2 BL CAP with leukocytosis, tachycardia, and was placed on rocephin and azithromycin, and O2 via NC. He had some chest discomfort which was attributed to pleurisy - EKG and tele were negative, and trop x 3 were neg. He underwent an echo that was unremarkable. He had uncontrolled HTN and was placed on HCTZ. He was unable to be weaned off O2. He required O2 at rest and exertion. He was transitioned to PO levaquin for DC and will have 7 more days for a total of 10 days of therapy. He was discharged home in stable condition. He will f/u with his WORKER'S COMPENSATION CLAIMS EXAMINER at [facility], and have a repeat 6 minute O2 eval in 2 weeks. This patient was seen by Sudhir Oseguera PA-C under the supervision of Dr. Cordova. [] - Physical Exam General: Alert, Oriented x3, Cooperative HEENT: Atraumatic, PERRLA, EOMI, Normocephalic Neck: Supple, No JVD, Negative Carotid Bruits Lungs: Clear to auscultation, Normal air movement Cardiovascular: Regular rate, No murmurs Abdomen: Bowel Sounds Present, Soft, Non Tender Extremities: No edema, Capillary Refill Less than 3 Seconds Skin: No rashes, No breakdown Musculoskeletal: No Tenderness to Palpation of Joints or Extremities Neurological: Cranial nerves II-XII grossly intact Psych/Mental Status: Normal Affect, Appropriate, Alert and oriented to time, place, person, mood and affect Vital Signs Temp Pulse Resp BP Pulse Ox 98.7 F 90 20 H 129/60 H 93 10/30/18 13:33 10/30/18 13:47 10/30/18 13:47 10/30/18 13:33 10/30/18 13:33 Oxygen Flow Rate (L/min) 2 Oxygen Delivery Method Nasal Cannula Weight: 504 lb 15.994 oz Body Mass Index (BMI) 72.4 Intake and Output for Last 24 Hours Intake Total 480 / 480 2396 / 2396 620 / 620 Balance 480 / 480 2396 / 2396 620 / 620 Microbiology Past 72 Hours 10/28/18 08:31 Respiratory Panel (PCR) - Final Laboratory Tests Past 24 Hrs Discharge Diet: Low fat/ Low Cholesterol, 2000 mg Sodium Diet Discharge Activity: Return to Normal Activity, - Additional Dressing/Incision Instructions:: Use O2 as directed, new oxygen retest in 2 weeks at either [facility] or [facility]. Home Medications: Medications to take at Discharge Hydrochlorothiazide [Hctz] 25 mg PO DAILY #30 tablet 10/30/18 levoFLOXacin tablet [Levaquin tablet] 750 mg PO DAILY #7 tablet 10/30/18 Following Prescrptions Were Given to Patient: levoFLOXacin tablet [Levaquin tablet] 750 mg PO DAILY #7 tablet Primary Care Physician: Nelda Mayen MD [Primary Care Provider] - Please Follow Up With: New PCP - (WORKER'S COMPENSATION CLAIMS EXAMINER) When: 1-2 weeks Please Follow Up With: [facility] pulmonary services When: for f/u ambulatory oxygen test if you cannot get into new PCP Please Follow Up With: Nelda Mayen MD Disposition: Home Minutes spent on discharge:: 35 Patient Condition:: Stable Medical Necessity - Tobacco Use Smoking Status: Former smoker - He used to to tobacco but never smoked. Meaningful Use Info Meaningful Use Diagnoses (Choose all that apply): None applicable 10/30/18 1452 <Electronically signed by Sudhir PINTO> Date Sudhir PINTO 10/30/18 1800<Electronically signed by Charli Cordova DO> Cosigner Signature (if applicable): Date Charli Cordova DO CC: BLAIR Oseguera; Charli Cordova DO; Nelda Mayen MD Signed DISCHARGE INSTRUCTION Observed: 10/30/2018 Status: F Source: [place] 11:20 AM [facility] REPOSITORY [facility] Medical Records Department [address] [facility] [place] [address] Instructions for Home/Discharge Instructions 10/30/18 1116 MR#: [id number] Acct: [id number] Name: MYNOR VALERIO Rep #: [id number] : 1990 28 From: Sudhir PINTO PCP: Nelda Mayen MD Status: ADM IN - Discharge Diagnoses Current Active Problems: Current Active and Chronic Problems Acute hypoxemic respiratory failure (Acute) You will use the following diet at home:: Cardiac Your food should be the consistency of: Regular Your liquids should be the consistency of: Regular/Thin Discharge Activity: Return to Normal Activity, - Additional Dressing/Incision Instructions:: Use O2 as directed, new oxygen retest in 2 weeks at either [facility] or [facility]. Allergies/Adverse Reactions: Allergies No Known Allergies Allergy (Verified 10/28/18 02:29) Medications to take at Discharge Hydrochlorothiazide [Hctz] 25 mg PO DAILY #30 tablet 10/30/18 levoFLOXacin tablet [Levaquin tablet] 750 mg PO DAILY #7 tablet 10/30/18 The following prescriptions were given: levoFLOXacin tablet [Levaquin tablet] 750 mg PO DAILY #7 tablet Test Results: Test results from this visit will be discussed in further detail at your follow-up appointment, if applicable. Please Follow Up With: New PCP When: 1-2 weeks Proposed Discharge Date: 10/30/18 10/30/18 1120 <Electronically signed by Sudhir PINTO> Date Sudhir PINTO CC: Nelda Mayen MD CBC W/DIFF, AUTOMATED Collected: 10/30/2018 Status: F Source: [place] 5:55 AM [facility] REPOSITORY TYPE CODE TESTS RESULT OUT OF RANGE REFERENCE UNITS LAB L100.1000 4.4-11.0 K/mm3 Normal WBC 8.1 LAB L100.1200 4.6-6.2 M/mm3 High RBC 6.27 LAB L100.1300 13.0-16.5 g/dl Normal HGB 14.0 LAB L100.1400 40-54 % Normal HCT 48.1 LAB L100.1500 80-94 fL Low MCV 76.7 LAB L100.1600 27.0-32.0 pg Low MCH 22.3 LAB L100.1700 32-36 g/gl Low MCHC 29.1 LAB L100.1810 11.6-14.6 % High RDW CV 17.4 LAB L100.1820 35.1-43.9 fl High RDW SD 47.2 LAB L100.1900 150-450 K/mm3 Normal PLT 305 LAB L100.2000 6.2-12.0 fl Normal MPV 10.1 LAB L100.2100 47-70 % Normal NEUT% 69.7 LAB L100.2200 19-41 % Normal LY% 20.2 LAB L100.2300 0-10 % Normal MONO% 6.8 LAB L100.2400 0-5 % Normal EO% 1.9 LAB L100.2500 0-1 % Normal BASO% 0.5 LAB L100.2550 0.0-0.9 % Normal IM GRAN % 0.900 Result Comment: IG% - Immature Granulocytes (promyelocytes, myelocytes and metamyelocytes) > 1% indicates that a LEFT SHIFT is Present. LAB L100.2620 2.0-7.7 X10 3/uL Normal Absolute Neut 5.6 LAB L100.2720 0.83-4.51 X10 3/ul Normal Absolute Lymph 1.63 Performed By: #### L100.0100 #### [facility] [place], [address] CHEST PA AND LATERAL Observed: 10/30/2018 Status: F Source: [place] 12:00 AM [facility] REPOSITORY [facility] Imaging Services [address] [place] [address] Chest PA and Lateral MR#: [id number] Acct: [id number] Name: MYNOR VALERIO Rep #: [id number] : 1990 M 28 From: Ramos Rosado MD PCP: Nelda Mayen MD Status: ADM IN Study: Chest PA and Lateral Date of Exam: 10/30/18 Exam# [id number] Ordering Dr: Charli Cordova DO STUDY: X-RAY CHEST REASON FOR EXAM: Male, 28 years old. Shortness of breath/dyspnea. TECHNIQUE: Single AP portable view of the chest. COMPARISON: None. FINDINGS: EKG electrodes are seen. There is evidence of vascular congestion and mild degree of CHF. There is no demonstrated pleural abnormality. There is moderate cardiac enlargement. Normal mediastinum and arlette. Normal visualized pulmonary arteries. Normal visualized aortic arch and descending thoracic aorta. Normal visualized thoracic spine. Normal visualized ribs, clavicles, and shoulders. There is no demonstrated abnormality of the visualized soft tissue structures of the upper abdomen. RAD/Chest PA and Lateral IMPRESSION: Basilar congestion and CHF. Electronically Signed: Ramos Rosado MD at 10:27 EST Tel [phone], Service support , CC: Charli Cordova DO; Nelda Mayen MD Stud Setter: Signed ECHO, COMPLETE W/ Observed: 10/29/2018 Status: F Source: [place] CONTRAST 12:21 PM [facility] REPOSITORY [facility] Cardiovascular Services [address] [address] Echo Complete W/ Contrast 10/29/18 0940 MR#: [id number] Acct: [id number] Name: MYNOR VALERIO Rep #: [id number] : 1990 28 From: Kali Steven MD Attending Dr: Charli Cordova DO Status: ADM IN Ordering Dr: Alexandro Treadwell MD Date: 10/28/18 Location: [facility] Sex: M C Admitted: 10/28/18 Reason For Study: Dyspnea/SOB Procedure This was a 2D Doppler, Color Flow transthoracic echocardiogram. The study was technically difficult. Contrast injection was performed. Exam performed portable in ED. Left Ventricle Normal LV size. Moderate concentric left ventricular hypertrophy. Left ventricular systolic function is normal. The estimated ejection fraction is 65 %. Normal diastology for age. No regional wall motion abnormalities noted. Right Ventricle Normal RV size. Normal systolic function. Atria The left atrium is mildly enlarged. The right atrium is mildly enlarged. Mitral Valve Normal mitral valve. Tricuspid Valve Normal tricuspid valve. Aortic Valve The aortic valve is not well visualized. Pulmonic Valve Normal pulmonic valve. Great Vessels Normal aortic root. The pulmonary artery is normal size. Normal inferior vena cava. Pericardium/Pleural No pericardial effusion. Medication Definity0.2ml given slow IV push to enhance endocardial definition. MMode/2D Measurements AND Calculations LVIDd: 5.2 cm IVSd: 1.6 cm Ao root diam: 3.1 cm LVIDs: 3.4 cm LVPWd: 1.3 cm RVDd: 4.3 cm FS: 34.5 % LAV(MOD-bp): 69.2 ml LVAd ap4: 35.8 cm2 SV(MOD-sp4): 78.4 ml LAV(MOD-bp) Indexed: 22.4 ml/m2 EDV(MOD-sp4): 117.0 ml LAV(MOD-sp2): 73.3 ml EDV(sp4-el): 122.3 ml LAV(MOD-sp4): 67.0 ml LVAs ap4: 19.4 cm2 ESV(MOD-sp4): 38.6 ml ESV(sp4-el): 39.8 ml EF(MOD-sp4): 67.0 % EF(sp4-el): 67.5 % SV(sp4-el): 82.5 ml LA A4 area: 23.4 cm2 LA dimension(2D): 4.7 cm RA A4 area: 26.3 cm2 Doppler Measurements AND Calculations MV E max chepe: 78.0 cm/sec Lat Peak E' Chepe: 12.3 cm/sec Med Peak E' Chepe: 9.2 cm/sec MV A max chepe: 52.5 cm/sec E/E' lat: 6.3 E/E' med: 8.5 MV E/A: 1.5 Ao V2 max: 135.8 cm/sec LV V1 max: 115.2 cm/sec PA V2 max: 97.2 cm/sec Ao max P.4 mmHg LV V1 max P.3 mmHg Ao V2 mean: 96.7 cm/sec Ao mean P.2 mmHg Ao V2 VTI: 26.8 cm Interpretation Summary Normal LV size. Moderate concentric left ventricular hypertrophy. Left ventricular systolic function is normal. The estimated ejection fraction is 65 %. Normal diastology for age. Contrast injection was performed. Ordering Physician: Alexandro Treadwell Performed By: Melody Phillip, OSBALDO, RVT 10/29/18 1220 Date Kali Steven MD CC: Alexandro Treadwell MD; Charli Cordova DO; Nelda Mayen MD Date Dictated: 10/29/18939 Date Transcribed: 10/29/18 122 Stud Setter: Signed CBC W/DIFF, AUTOMATED Collected: 10/29/2018 Status: F Source: [place] 5:35 AM [facility] REPOSITORY TYPE CODE TESTS RESULT OUT OF RANGE REFERENCE UNITS LAB L100.1000 4.4-11.0 K/mm3 High WBC 11.2 LAB L100.1200 4.6-6.2 M/mm3 High RBC 6.24 LAB L100.1300 13.0-16.5 g/dl Normal HGB 13.9 LAB L100.1400 40-54 % Normal HCT 48.4 LAB L100.1500 80-94 fL Low MCV 77.6 LAB L100.1600 27.0-32.0 pg Low MCH 22.3 LAB L100.1700 32-36 g/gl Low MCHC 28.7 LAB L100.1810 11.6-14.6 % High RDW CV 17.6 LAB L100.1820 35.1-43.9 fl High RDW SD 48.2 LAB L100.1900 150-450 K/mm3 Normal PLT 340 LAB L100.2000 6.2-12.0 fl Normal MPV 10.6 LAB L100.2100 47-70 % High NEUT% 71.0 LAB L100.2200 19-41 % Low LY% 18.4 LAB L100.2300 0-10 % Normal MONO% 6.6 LAB L100.2400 0-5 % Normal EO% 2.1 LAB L100.2500 0-1 % Normal BASO% 0.4 LAB L100.2550 0.0-0.9 % High IM GRAN % 1.500 Result Comment: IG% - Immature Granulocytes (promyelocytes, myelocytes and metamyelocytes) > 1% indicates that a LEFT SHIFT is Present. LAB L100.2620 2.0-7.7 X10 3/uL High Absolute Neut 8.0 LAB L100.2720 0.83-4.51 X10 3/ul Normal Absolute Lymph 2.06 Performed By: #### L100.0100 #### [facility] [address] [facility]. [place], [place], [address] TROPONIN-I Collected: 10/28/2018 Status: F Source: [place] 9:00 AM [facility] REPOSITORY Order Comment: 'TROP' Serial specimen #1, #2 or #3: 3 TYPE CODE TESTS RESULT OUT OF RANGE REFERENCE UNITS LAB L501.4010 <0.045 ng/mL Normal 0.026 TROPONIN-I Result Comment: TROPONIN-I EXPECTED VALUES <0.045 Negative 0.045 - 0.590 Consistent with Cardiac Damage > OR = 0.600 Critical Value Not every elevated troponin is indicative of OK. These values should be used with clinical judgement in examining the patient's clinical picture for diagnosis. To establish a diagnosis of OK versus myocardial injury, there must be a demonstrated rise and/or fall in the troponin values, in addition to ischemic symptoms, EKG changes, new regional wall motion abnormality, and/or angiographical evidence. PLEASE NOTE: REFERENCE RANGES EDITED 18 Performed By: #### L501.4010 #### [facility] [address] [facility] [place], [address] Observed: 10/28/2018 Status: F Source: [place] RESPIRATORY PANEL 8:31 AM [facility] MOLECULAR REPOSITORY RP PANEL ADENOVIRUS Not Detected HUMAN METAPHNEUMO Not Detected INFLUENZA A Not Detected INFLUENZA A (SUBTYPE H1) Not Detected INFLUENZA A (SUBTYPE H3) Not Detected INFLUENZA B Not Detected PARAINFLUENZA 1 Not Detected PARAINFLUENZA 2 Not Detected PARAINFLUENZA 3 Not Detected PARAINFLUENZA 4 Not Detected RHINOVIRUS Not Detected RSV A Not Detected RSV B Not Detected NAAT METHOD Testing was performed using nucleic acid amplification Performed By: #### M100.638 #### [facility] [address] [facility] [place], [address] Observed: 10/28/2018 Status: F Source: [place] LEGIONELLA ANTIGEN 6:35 AM [facility] URINE REPOSITORY Order Date: 10/28/18 Specimen Source: URINE, CLEAN CATCH Legionella, UR Legionella Antigen result interpretation: Negative Presumptive negative for Legionella pneumophila serogroup 1 antigen in urine, suggesting no recent or current infection. Legionella Ag, Urine Negative (See interpretation below) Performed By: #### M300.4500 #### [facility] [address] [facility] [place], [address] STREP Observed: 10/28/2018 Status: F Source: [place] PNEUMONIAE ANTIG(UR,CSF) 6:35 AM [facility] REPOSITORY Order Date: 10/28/18 S pneumo Ag URINE INTERPRETATION Negative Urine Presumptive negative for pneumococcal pneumonia, suggesting no current or recent pneumococcal infection. Infection due to S pneumoniae cannot be ruled out since the antigen present in the sample may be below the detection limit of the test. Strep pneumo Test Negative URINE (See interpretation below) Performed By: #### M300.4600 #### [facility] [address] [facility]. [place], [place], [address] TROPONIN-I Collected: 10/28/2018 Status: F Source: [place] 6:00 AM [facility] REPOSITORY Order Comment: 'TROP' Serial specimen #1, #2 or #3: 2 TYPE CODE TESTS RESULT OUT OF RANGE REFERENCE UNITS LAB L501.4010 <0.045 ng/mL Normal 0.037 TROPONIN-I Result Comment: TROPONIN-I EXPECTED VALUES <0.045 Negative 0.045 - 0.590 Consistent with Cardiac Damage > OR = 0.600 Critical Value Not every elevated troponin is indicative of OK. These values should be used with clinical judgement in examining the patient's clinical picture for diagnosis. To establish a diagnosis of OK versus myocardial injury, there must be a demonstrated rise and/or fall in the troponin values, in addition to ischemic symptoms, EKG changes, new regional wall motion abnormality, and/or angiographical evidence. PLEASE NOTE: REFERENCE RANGES EDITED 18 Performed By: #### L501.4010 #### [facility] [address] 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 10/28/18 0344 <Electronically signed by Alexandro Treadwell MD> Date Alexandro Treadwell MD cc: Alexandro Treadwell MD; Nelda Mayen MD * Signed Problem List (1) Acute hypoxemic respiratory failure Status: Acute History of Present Illness Date of Admission: 10/28/18 Chief Complaint: shortness of breath The patient is a 28 year old M with a signification history of former tobacco use and super morbid obesity who presents with 2-3 weeks history of progressively worsening shortness of breath on exertion. Associated with his symptoms is substernal chest pain that is brought on by taking a deep breath. He denies any nausea. He vomited about a week ago but he attributed this to a food poisoning which the members of his family also had. He denies diaphoresis. He denies any fever or chills. Although on the day of presentation to the outside Hospital that he came from, he felt cold. Patient reports orthopnea in the last month requiring him to sleep in a recliner. Patient presented initially to [facility]. His oxygen saturation was 40-70% on room air. Emergency department doctor at [facility] to transfer patient because patient was too hypoxic to be admitted. Chest Xray [facility] showed cardiomegaly. Patient had leukocytosis with a white count of 17.4. He had a BNP of 188(normal 0-125). ABG showed PaO2 of 46 with PCO2 of 50. Bicarbonate was 32. On 3L at outside Hospital his oxygen saturation was from 86% to 92% Because patient has a large body habitus CTPA could not be done. Patient was treated with Rocephin and azithromycin for probable community acquired pneumonia On admission here on 4 L his oxygen saturation was around 89%. Patient reports that he has not seen a doctor in over 2 years. Past Medical History Allergies No Known Allergies Allergy (Verified 10/28/18 02:29) Surgical History: no surgical history Lives: Alone Smoking Status: Former smoker - He used to to tobacco but never smoked. Alcohol: Rare - *Family History Paternal History Items: Heart Disease, Hypertension Maternal History Items: Diabetes, Heart Disease, Hypertension Review of Systems Constitutional: Denies: Chills, Fever, Weight Change HEENT: Denies: Head Aches, Sinus Congestion, Sinus Drainage Cardiovascular: Reports: Chest Pain, Orthopnea. Denies: Palpitations Respiratory: Reports: Cough - chronic, Shortness of breath upon exertion. Denies: Shortness of breath at rest, Sputum production Gastrointestinal: Denies: Abdominal Pain, Nausea, Vomiting Genitourinary: Denies: Dysuria Musculoskeletal: Reports: - - Bilateral knee pain for which he has been using CBD oil.. Denies: Joint Pain Skin: Denies: Rash, Wounds Neurological: Denies: Numbness, Tingling, Focal weakness Psychiatric: Denies: Anxiety, Depression, Homicidal Ideations, Suicidal Ideations Hematologic/ Lymphatic: Denies: Easy Bruising, Easy Bleeding VTE Information - Inpt Only VTE Present on Admission: No VTE Mechan Device Prophylaxis: None VTE Pharm Prophylaxis ordered?: Yes Patient Problems: Active and Suspected Problems Acute hypoxemic respiratory failure (Acute) - Physical Exam General: Alert, Oriented x3, Cooperative HEENT: Atraumatic, PERRLA, EOMI, Normocephalic Neck: Supple, No JVD, Negative Carotid Bruits Lungs: Diminished - May be from body habitus. Cardiovascular: Regular rate, No murmurs Abdomen: Bowel Sounds Present, Soft, Non Tender Extremities: No edema, Capillary Refill Less than 3 Seconds Skin: No rashes, No breakdown Musculoskeletal: No Tenderness to Palpation of Joints or Extremities Neurological: Neuro grossly intact Psych/Mental Status: Normal Affect, Appropriate Weight: 229.064 kg Body Mass Index (BMI) 72.4 Assessment/Plan All Active Problems Acute hypoxemic respiratory failure (Acute) The patient is a 28 year old M with a signification history of former tobacco use and super morbid obesity who presents with 2-3 weeks history of progressively worsening shortness of breath on exertion and noted to have severe hypoxia with pleuritic chest pain; and leukocytosis.. Acute hypoxemic respiratory failure Etiology is unclear at this time. Chest x-ray at outside hospital was interpreted as borderline cardiomegaly. With no other abnormality but the study was suboptimal due to body habitus. Because of leukocytosis it was presumed that patient has pneumonia and Rocephin and azithromycin was started from outside hospital. We will continue Rocephin and azithromycin for probable committee acquired pneumonia. A different diagnosis includes pulmonary embolism; heart failure or other. His leukocytosis could be reactive. Of note patient has sinus tachycardia and pleuritic chest pain. He may also be having some underlying pickwickian syndrome. Supplemental oxygen to maintain saturation more than 90%. Strep pneumonia antigen and Legionella antigen ordered. Mycoplasma antigen ordered. Respiratory pathogen panel ordered. CBC and BMP in a.m. If patient does not improve consider pulmonology consult. Chest pain Chest pain is pleuritic and he associates with his shortness of breath. EKG shows sinus tach We will order cardiac enzymes for now. Hypertension Systolic blood pressure at the hospital was 165/115; 169/101; His blood pressure here was 181/108. Since his blood pressure is more than 160 we will go ahead and start him on low-dose hydrochlorothiazide. Trend blood pressure and adjust blood pressure medication. DVT prophylaxis Because of his body habitus we will start him on Lovenox 40 mg twice daily. Code Visit Inpatient E AND M: 74831 Init Hosp L3 10/28/18 0343 <Electronically signed by Alexandro Treadwell MD> Date Alexandro Treadwell MD Cosigner Signature: Date (if applicable) CC: Alexandro Treadwell MD; Nelda Mayen MD Signed CBC-COMPLETE BLOOD CNT Collected: 10/28/2018 Status: F Source: MICHAEL NO DIFF 3:36 AM [facility] REPOSITORY TYPE CODE TESTS RESULT OUT OF RANGE REFERENCE UNITS LAB L100.1000 4.4-11.0 K/mm3 High WBC 13.7 LAB L100.1200 4.6-6.2 M/mm3 Normal RBC 5.91 LAB L100.1300 13.0-16.5 g/dl Normal HGB 13.3 LAB L100.1400 40-54 % Normal HCT 44.6 LAB L100.1500 80-94 fL Low MCV 75.5 LAB L100.1600 27.0-32.0 pg Low MCH 22.5 LAB L100.1700 32-36 g/gl Low MCHC 29.8 LAB L100.1810 11.6-14.6 % High RDW CV 16.1 LAB L100.1820 35.1-43.9 fl High RDW SD 44.1 LAB L100.1900 150-450 K/mm3 Normal PLT 315 LAB L100.2000 6.2-12.0 fl Normal MPV 9.9 Performed By: #### L100.0500 #### [facility] [address] [place], [address] BASIC METABOLIC Collected: 10/28/2018 Status: F Source: MICHAEL PROFILE (BMP) 3:36 AM [facility] REPOSITORY Order Comment: 'TROP' Serial specimen #1, #2 or #3: 1 'TROP' Serial specimen #1, #2, #3, or #4: 1 TYPE CODE TESTS RESULT OUT OF RANGE REFERENCE UNITS LAB L501.0100 74-106 mg/dL High GLU 113 Result Comment: Fasting Glucose result from 100 to 125 mg/dL suggests IMPAIRED HOMEOSTASIS per A.D.A. criteria. Please note revised GLUCOSE reference range effective 2017. LAB L501.1000 7-18 mg/dL Normal BUN 11 LAB L501.1100 0.70-1.30 mg/dL Normal CREAT,SERUM 0.84 Result Comment: The validity of the calculated GFR AND GFRAA in patients over 70 years has not been determined. Clinical correlation is essential. LAB L501.1110 >60 mL/min Normal EST GFR 115 Result Comment: Non- GFR Calc LAB L501.1115 >60 mL/min Normal EST GFR - AA 140 Result Comment: GFR Calc LAB L501.1255 ml/min Normal Estimated CRCL 133.98 LAB L501.1300 10-20 RATIO BUN/CRE Normal 13.1 LAB L501.2200 8.5-10 mg/dL Low .1 CA 8.3 LAB L501.5300 136-14 mmol/L 5 NA Normal 141 LAB L501.5600 3.5-5. mmol/L 1 K Normal 3.8 LAB L501.5900 98-107 mmol/L CL Normal 102 LAB L501.6100 21.0-3 mmol/L 2.0 CO2 Normal 31.0 LAB L501.6200 5-15 GAP Normal 8 Performed By: #### L500.2500, L501.4010 #### [facility] [address] [place], [place], [address] TROPONIN-I Collected: 10/28/2018 Status: F Source: MICHAEL 3:36 AM [facility] REPOSITORY Order Comment: 'TROP' Serial specimen #1, #2 or #3: 1 'TROP' Serial specimen #1, #2, #3, or #4: 1 TYPE CODE TESTS RESULT OUT OF RANGE REFERENCE UNITS LAB L501.4010 <0.045 ng/mL Normal 0.040 TROPONIN-I Result Comment: TROPONIN-I EXPECTED VALUES <0.045 Negative 0.045 - 0.590 Consistent with Cardiac Damage > OR = 0.600 Critical Value Not every elevated troponin is indicative of OK. These values should be used with clinical judgement in examining the patient's clinical picture for diagnosis. To establish a diagnosis of OK versus myocardial injury, there must be a demonstrated rise and/or fall in the troponin values, in addition to ischemic symptoms, EKG changes, new regional wall motion abnormality, and/or angiographical evidence. PLEASE NOTE: REFERENCE RANGES EDITED 18 Performed By: #### L500.2500, L501.4010 #### [facility] [address] [place], [place], [address] MYCOPLASMA PNEU IGG / Collected: 10/28/2018 Status: F Source: [place] IGM 3:36 AM [facility] REPOSITORY TYPE CODE TESTS RESULT OUT OF REFERENCE UNITS RANGE LAB L7000.2525 0-99 U/mL High MYCO IgG 823 [id number] Result Comment: Negative: <100 Indeterminate: 100 - 320 Positive: >320 The reference interval established is intended as a baseline only. Values >100 may indicate a recent infection with Mycoplasma pneumoniae and need to be confirmed either by a positive IgM result and/or an additional specimen drawn 2-4 weeks later showing a significant increase in antibody levels. LAB L7000.2600 0-769 U/mL Normal MYCOPLASMA IgM < 770 Result Comment: Negative <770 Clinically significant amount of M. pneumoniae antibody not detected. Low Positive 770 - 950 M. pneumoniae specific IgM presumptively detected. It is recommended that another sample be collected 1-2 weeks later to assure reactivity. Positive >950 Highly significant amount of M. pneumoniae specific IgM antibody detected. Performed at: [facility] [id number] [place] Supervisor: Jas Dudley PhD, Phone: [phone] Performed By: #### L7000.2400 #### [facility] (refer to report for specific site) refer to report for address and phone number CTA CHEST W/WO Observed: 10/28/2018 Status: F Source: MICHAEL CONTRAST 2:56 AM [facility] REPOSITORY [facility] Imaging Services [address] [place] [address] CTA Chest W/WO Contrast MR#: [id number] Acct: [id number] Name: MYNOR VALERIO Rep #: [id number] : 1990 M 28 From: Karsten Benz MD PCP: Nelda Mayen MD Status: ADM IN Study: CTA Chest W/WO Contrast Date of Exam: 10/28/18 Exam# [id number] Ordering Dr: Alexandro Treadwell MD HISTORY: SOB X 2-3 WEEKS BUT WORSE TONIGHT,HYPOXICOBESE PT 505 LBS,HARD TIME HOLDING BREATH TECHNIQUE: Helically acquired images were obtained of the chest following IV contrast as per pulmonary angiogram protocol with 3D reconstructions. A radiation dose optimization technique was used for this scan. IV Contrast dosage and agent: 100 cc Isovue-370 contrast COMPARISON: None FINDINGS: Patient obesity which limits diagnostic detail. Left lung infiltrates compatible with pneumonia with infiltrates most notable within the superior segment of the left lower lobe and posterior segment of the left upper lobe. Additional right lower lobe infiltrate. No pleural effusion. Evaluation of the pulmonary arterial system partly limited related to body habitus. The main, segmental, and visualized subsegmental pulmonary arteries appear normal. No PE. Thoracic aorta is normal in caliber without aneurysm or dissection. Cardiomegaly. No pericardial effusion. CT/CTA Chest W/WO Contrast IMPRESSION: 1. Bilateral pulmonary infiltrates, worse on the left, compatible with pneumonia. 2. Cardiomegaly. No PE. 3. Limited diagnostic detail related to patient obesity Individualized dose optimization techniques were used for this CT. at 0432 Reported and signed by: Karsten Benz MD Electronically Signed: Karsten Benz, at 4:30 EST Tel , Service support , CC: Alexandro Treadwell MD; Nelda Mayen MD Stud Setter: Signed XR CHEST 2 VIEWS Observed: 10/27/2018 Status: F Source: [facility] 11:14 PM [facility] REPOSITORY ORIGINAL XR CHEST 2 VIEWS CLINICAL STATEMENT: Chest pain, shortness of breath COMPARISON: None FINDINGS: The examination is suboptimal due to patient body habitus. There is borderline cardiomegaly. The mediastinal silhouette is normal. No consolidation, pleural effusion, pneumothorax, or vascular congestion. No acute osseous findings. IMPRESSION: Borderline cardiomegaly. I have personally reviewed the images of this examination and agree with the resident's findings and interpretation. Interpreted By: Micki Oneill MD Preliminary Report By: Jer Patel DO Electronically Signed By: Micki Oneill MD Dictated Date: 10/27/2018 11:22:19 PM Prelim Date: 10/27/2018 11:24:44 PM Sign Date: 10/27/2018 11:31:53 PM CBC Collected: 10/27/2018 Status: F Source: [facility] 10:47 PM [facility] REPOSITORY TYPE CODE TESTS RESULT OUT OF REFERENCE UNITS RANGE LAB WBC(LOINC) 4.60-10.80 10 3/mcL High WBC 17.40 LAB RBCCT(LOINC 4.04-6.13 10 6/mcL ) High RBC 6.47 LAB HGB(LOINC) 14.0-18.0 G/dL Hgb 14.1 LAB HCT(LOINC) 42.0-52.0 % Hct 47.2 LAB MCV(LOINC) 80.0-94.0 fL Low MCV 73.0 LAB MCH(LOINC) 27.0-31.2 pg Low MCH 21.9 LAB MCHC(LOINC) 31.8-35.4 G/dL Low MCHC 29.9 LAB RDW(LOINC) 11.5-14.5 % High RDW 16.9 LAB PLT(LOINC) 130-400 10 3/mcL Platelet 362 LAB MPV(LOINC) 7.4-10.4 fL MPV 8.3 Performed By: #### CBC, ADIFF, ANEU #### [address] [address] #### TROP, GFR, BMP, PBNP #### [address] [address] .AUTO DIFF Collected: 10/27/2018 Status: F Source: [facility] 10:47 PM [facility] REPOSITORY TYPE CODE TESTS RESULT OUT OF REFERENCE UNITS RANGE LAB TIMOTHY(LOINC) 37.0-80.0 % Neutrophil % 73.6 LAB LYM(LOINC) 10.0-50.0 % Lymphocyte % 18.3 LAB MON(LOINC) 1.7-13.0 % Monocyte % 5.9 LAB EO(LOINC) 0.0-7.0 % Eosinophil % 1.4 LAB BAS(LOINC) 0.0-2.5 % Basophil % 0.8 LAB ABLYM(LOIN 0.77-3.85 10 3/mcL C) Lymphocyte, 3.20 Absolute LAB MICHELE(LOINC 0.15-1.00 10 3/mcL ) Monocyte, 1.00 Absolute LAB AEOS(LOINC 0.00-0.40 10 3/mcL ) Eosinophil, 0.20 Absolute LAB ABAS(LOINC 0.00-0.19 10 3/mcL ) Basophil, 0.10 Absolute Performed By: #### CBC, ADIFF, ANEU #### [address] [address] #### TROP, GFR, BMP, PBNP #### [place] [address] .NEUABS Collected: 10/27/2018 Status: F Source: [facility] 10:47 PM [facility] REPOSITORY TYPE CODE TESTS RESULT OUT OF REFERENCE UNITS RANGE LAB ANEU(LOINC) 2.85-6.16 10 3/mcL High Neutrophil, 12.80 Absolute Performed By: #### CBC, ADIFF, ANEU #### [place] [address] #### TROP, GFR, BMP, PBNP #### [place] [address] BMP Collected: 10/27/2018 Status: F Source: [facility] 10:47 PM [facility] REPOSITORY TYPE CODE TESTS RESULT OUT OF REFERENCE UNITS RANGE LAB GLU(LOINC) 70-105 mg/dL Glucose High Level 127 LAB NA(LOINC) 136-145 mmol/L Sodium Level 138 LAB K(LOINC) 3.5-5.1 mmol/L Potassium Level 4.3 LAB CL(LOINC) 98-107 mmol/L Chloride 98 LAB CO2(LOINC) 22-29 mmol/L CO2 High 31 LAB EBAL(LOINC mEq/L ) Electrolyte Balance 9.0 LAB BUN(LOINC) 7-18 mg/dL BUN 13 LAB CRE(LOINC) 0.70-1.30 mg/dL Creatinine Lvl (s) 1.01 LAB BC(LOINC) 7-27 ratio BUN/Creatinine 13 Ratio LAB CA(LOINC) 8.4-10.2 mg/dL Calcium Lvl 8.4 Performed By: #### CBC, ADIFF, ANEU #### [place] [address] #### TROP, GFR, BMP, PBNP #### [place] [address] TROP Collected: 10/27/2018 Status: F Source: [facility] 10:47 [facility] REPOSITORY TYPE CODE TESTS RESULT OUT OF REFERENCE UNITS RANGE LAB TROP(LOINC) 0.000-0.040 ng/mL Troponin 0.033 Result Comment: Troponin I reference range: 0.00-0.040 ng/mL Negative and non-diagnostic. >0.040 ng/mL Consistent with cardiac damage, increased clinical risk and possibility of myocardial infarction. Serial measurements, a rise & fall in test results, clinical history, appropriate symptoms and/or ECG changes may help assess possibility of OK. *Other non-acute coronary syndrome conditions such as CHF, myocarditis, pulmonary emboli, sepsis and cardiac surgery could result in myocardial damage and increased troponin levels. Performed By: #### CBC, ADIFF, ANEU #### [place] [address] #### TROP, GFR, BMP, PBNP #### [place] [address] PBNP Collected: 10/27/2018 Status: F Source: [facility] 10:47 [facility] REPOSITORY TYPE CODE TESTS RESULT OUT OF REFERENCE UNITS RANGE LAB PBNP(LOINC) 0-125 pg/mL High N-Terminal 188 proBNP Result Comment: NT-proBNP results of less than 300 pg/mL effectively rules out acute congestive heart failure with 99% negative predictive value. Performed By: #### CBC, ADIFF, ANEU #### [place] [address] #### TROP, GFR, BMP, PBNP #### [place] [address] .GFR Collected: 10/27/2018 Status: F Source: [facility] 10:47 [facility] REPOSITORY TYPE CODE TESTS RESULT OUT OF REFERENCE UNITS RANGE LAB GFRAA(LOINC ml/min/1.73 ) sqm GFR 106 [place] Result Comment: GFR Population mean for , Non- Americans Ages 20-29 = 116 mL/min/1.73 sq.m. Ages 30-39 = 107 mL/min/1.73 sq.m. Ages 40-49 = 99 mL/min/1.73 sq.m. Ages 50-59 = 93 mL/min/1.73 sq.m. Ages 60-69 = 85 mL/min/1.73 sq.m. Ages 70+ = 75 mL/min/1.73 sq.m. Chronic Kidney Disease: Less than 60 mL/min/1.73 square meters End Stage Renal Disease: Less than 15 mL/min/1.73 square meters LAB GFRNO(LOINC) ml/min/1.73sqm GFR Non- 87 Result Comment: GFR Population mean for , Non- Americans Ages 20-29 = 116 mL/min/1.73 sq.m. Ages 30-39 = 107 mL/min/1.73 sq.m. Ages 40-49 = 99 mL/min/1.73 sq.m. Ages 50-59 = 93 mL/min/1.73 sq.m. Ages 60-69 = 85 mL/min/1.73 sq.m. Ages 70+ = 75 mL/min/1.73 sq.m. Chronic Kidney Disease: Less than 60 mL/min/1.73 square meters End Stage Renal Disease: Less than 15 mL/min/1.73 square meters Performed By: #### CBC, ADIFF, ANEU #### [address] [address] #### TROP, GFR, BMP, PBNP #### [address] [address] ABG Collected: 10/27/2018 Status: F Source: [facility] 10:44 [facility] REPOS[facility] TYPE CODE TESTS RESULT OUT OF REFERENCE UNITS RANGE LAB PH(LOINC) 7.35-7.45 pH 7.40 LAB PCO2(LOINC) 35.0-45.0 mmHg High pCO2 50.4 LAB PO2(LOINC) 80.0-100.0 mmHg Low pO2 46.0 LAB HCO3(LOINC) 22.0-26.0 mmol/L High HCO3 31.5 LAB TCO2(LOINC) 19-24 mmol/L High CO2 Totl 33 LAB BE(LOINC) -2.4-2.3 mmol/L High Base Excess 7.0 LAB O2SAT(LOINC 95-98 % ) Low O2 Sat 81 Performed By: #### ABG #### [address] [address] ALLERGIES ALLERGIES DATE TYPE / CODE NAME / CODE REACTION SEVERITY SOURCE 10/28/2018 Drug No Known Unknown [facility] Allergy/4160 Allergies/F00 Hospital 20016(SNOMED [id number](RXNOR Repository CT) M) ENCOUNTERS ENCOUNTERS ADMIT/DISCHARGE ACCOUNT NUMBER ADMITTING ENCOUNTER LOCATION SOURCE CLASS 10/28/2018/10/30/20 [id number] [place]ong, Inpatient [place] Michael 18 Alexandro Encounter [facility] ding:PCJerry Repository : [id number]: 1 10/28/2018 [id number] Agyepong, Ambulatory BMSBuilding: Michael Mc [facility] Repository 10/28/2018 [id number] [place]yep[place], Ambulatory BMSBuilding: Michael Mc BMS.[facility] Repository 10/28/2018 [id number] [place], Ambulatory BMSBuilding: Michael Mc BMS.[facility] Repository 10/27/2018/10/28/20 [id number] Emergency BBuilding:RALF Greenberg [address] [place] [address] Repository PAYERS PAYERS ENCOUNTER GUARANTOR PAYER SUBSCRIBER SOURCE 10/28/2018 MYNOR Cat Primary NOT GIVENUNK [place] [id number] Insurance:SELF PAY [place], [place] Number: Effective Repository [phone]: ([phone]) Date:2018-10-28979 () 10/28/2018 MYNOR M Primary NOT GIVENUNK [place] [id number] Insurance:SELF PAY [place] Number: Effective Repository [phone]: ([phone]) Date:2018-10-28865 () 10/28/2018 MYNOR M Primary NOT GIVENUNK [place] [id number] Insurance:SELF PAY [place] Number: Effective Repository [phone]: (330) Date:2018-10-28105 () 10/28/2018 MYNOR M Primary NOT GIVENUNK Michael [id number] Insurance:SELF PAY [place] Number: Effective Repository [phone]: (330) Date:2018-10-28598 () 10/27/2018 MYNOR Cat [facility] MYNOR Cat [facility]: Insurance:SELF PAY [facility]: [facility] INSCOPolicy Number: [id number] [place], [place] Date:2018-10-27 [place] [address]~STAR [id number] Name:[id number]: [phone] [email or web address]: [phone] ()Tel: [phone] (HP) (WP) [phone] (WP)
== END 2018-10-30 14:26 | disposition home or self-care (01) | DRG 871 ==
PROVIDERS: Physician Assistant; Admitting Provider Hospitalist; Family Provider Family Medicine; PCP Family Medicine; Visit Provider Internal Medicine
DX: A41.9 Sepsis, unspecified organism (principal); J96.01 Acute respiratory failure with hypoxia; J15.4 Pneumonia due to other streptococci; Z68.45 Body mass index [BMI] 70 or greater, adult; E66.2 Morbid (severe) obesity with alveolar hypoventilation; I10 Essential (primary) hypertension; Z87.891 Personal history of nicotine dependence
CPT/HCPCS: 36415; 71046; 71275; 80048; 84484; 85025; 85027; 86738; 87449; 87633; 93306; 94640; 94667; 94668; 97802; 99251; Q9957; Q9967; A4216; C8929; G0463

== ENCOUNTER 2022-03-30 10:51 | Day surgery (SDC) | payer OTHER, SELFPAY ==
--- NOTE | 2022-03-24 08:39 | RAD_ITS ---
STUDY: X-RAY CHEST REASON FOR EXAM: Male, 31 years old. PREOP TECHNIQUE: PA and lateral COMPARISON 10/30/2018. FINDINGS: The lungs are clear and expanded. There is no demonstrated pleural abnormality. There is moderate cardiomegaly. Normal mediastinum and arlette. Normal visualized pulmonary arteries. Normal visualized aortic arch and descending thoracic aorta. Normal visualized thoracic spine. Normal visualized ribs, clavicles, and shoulders. There is no demonstrated abnormality of the visualized soft tissue structures of the upper abdomen. RAD/Chest PA and Lateral IMPRESSION: There is moderate cardiomegaly. Electronically Signed: [place] MD at 0:52 EDT ,
--- NOTE | 2022-03-24 08:42 | EKG12_ITS ---
Test Reason : PRE-OP Blood Pressure : / mmHG Vent. Rate : 087 BPM Atrial Rate : 087 BPM P-R Int : 152 ms QRS Dur : 092 ms QT Int : 352 ms P-R-T Axes : 027 048 -03 degrees QTc Int : 423 ms Normal sinus rhythm Nonspecific T wave abnormality Confirmed by TIERNEY OG, MONIKA ([id number]), videotape editor SHAYLA HUTTON ([id number]) on 03/25/2022 10:33:32 AM Referred By: Jer Meeks Confirmed By:MONIKA MONET MD
[2022-03-24 09:27] LABS: Hematocrit 46.2 % (40-54); Hemoglobin 14.4 g/dL (13.0-16.5); Mean Corp Hgb Conc 31.2 g/dL (32-36); Mean Corpuscular Volume 76.9 fL (80-94); Mean Platelet Vol. 10.2 fl (6.2-12.0); Platelet Count 385 K/mm3 (150-450); RBC Distribution Width CV 13.4 % (11.6-14.6); RBC Distribution Width SD 36.9 fl (35.1-43.9); Red Blood Count 6.01 M/mm3 (4.6-6.2); White Blood Count 8.3 K/mm3 (4.4-11.0)
[2022-03-24 09:46] LABS: Anion Gap 5 (5-15); BUN 9 mg/dL (7-18); BUN/Creat Ratio 9.8 RATIO (10-20); Calcium,Total 9.9 mg/dL (8.5-10.1); Chloride 104 mmol/L (98-107); Creatinine, Serum 0.92 mg/dL (0.70-1.30); EST Glomerular Filtration Rate 101 mL/min (>60); Est Glom Filt Rate - Afr Amer 122 mL/min (>60); Glucose 120 mg/dL (74-106); Potassium 4.3 mmol/L (3.5-5.1); Sodium Level 138 mmol/L (136-145)
[2022-03-30] VITALS (8 sets, daily range): BP systolic 142–168; BP diastolic 65–134; PULSE 80–108; RESP 14–19; TEMP 36.9–37.4; O2SAT 93–100; BMI 62.4
[2022-03-30] MEDS: Lactated Ringers 1,000 ML 15 ML IV (11:59)
[2022-03-30 12:01] LABS: Bedside Glucose 103 mg/dL (74-106)
--- NOTE | 2022-03-30 18:52 | DCINST_ITS ---
Discharge Instructions Follow Up Care Test Results: Test results from this visit will be discussed in further detail at your follow-up appointment, if applicable. Discharge Plan Admission Primary Reason for Your Visit: Right distal biceps tendon repair Attending Provider: Jer Meeks Primary Care Provider: Michelle Vásquez NP Instructions Additional Instructions / Restrictions: Follow preprinted instructions from your surgeons office. Discharge Orders/Prescriptions Prescriptions: No Action lisinopril 20 mg Tablet 20 mg PO DAILY RF: 0 amlodipine 10 mg Tablet 10 mg PO DAILY RF: 0 Other Ambulatory Orders: 12 Lead EKG (Routine) Timeframe: [id number] Location: None Selected Ordered By: Dr. Jer Meeks Referrals / Follow Up: Jer Meeks DO [STAFF PHYSICIAN] - Within 2 Weeks Michelle Vásquez NP, DIRECTOR EMERGENCY DEPARTMENT-C [Primary Care Provider] - Disposition Disposition (needs filled in before D/C Order can be placed): Home, Self Care
--- NOTE | 2022-03-30 18:52 | PCM.OPRPT ---
Report of Operation Date of Procedure: 03/30/22 Description of Surgical Findings:: Preoperative diagnosis: Right distal biceps tendon rupture Postoperative diagnosis: Right distal biceps tendon rupture Procedure: Right distal biceps tendon repair Surgeon: Jer Meeks DO Supervisor [employer] Education: Deja Sweet PA-C Anesthesia: General LMA Anesthesiologist: Dr. Montano Complications: None apparent Drains: None Estimated blood loss: 25 cc Urinary output: None measured IV fluids: 1000 cc crystalloid Specimens: None Surgical implants: Arthrex 7 mm tenodesis screw bio composite, Arthrex biceps button Surgical indications: This is a 31-year-old male seen in the outpatient setting diagnosed with a right distal biceps tendon rupture which was sustained with a work-related injury approximately 2 weeks ago. MRI confirmed the diagnosis. I recommended surgical intervention in the form of repair of right distal biceps tendon. The risks, benefits, alternatives to procedure were reviewed with patient at length in the outpatient setting and he agreed to proceed. Risks included but were not limited to bleeding, infection, loss of life or limb, risk of anesthesia, persistent paresthesias, neurovascular injury, persistent pain, need for additional surgery, tendon rerupture, stiffness, loss of hand or elbow function. Patient expressed understanding wish to proceed with surgery. Informed consent obtained in the office. Description of procedure: Patient was seen in preoperative holding area. Patient was identified by name, medical record number, date of . The operative extremity was marked with a surgical marker. We confirmed informed consent with the patient and all questions were answered to the patient's satisfaction. At time of his procedure, patient was brought to the operative suite and positioned supine a standard operating table. All bony prominences were well-padded. General anesthesia was induced and endotracheal tube placed. The hand table attached to the right side of the table. We spun the bed 90 degrees. We then prepped and draped the right upper extremity in normal, sterile orthopedic fashion. 3 g Ancef was administered prior to incision by anesthesia staff. We performed a timeout at this point confirming side, site, and operation to be performed. No concerns voiced and elected to proceed. I first applied a sterile tourniquet to the right upper brachium. Right upper extremity was then exsanguinated with Esmarch bandage. Tourniquet was inflated 250 mmHg remained up for approximately 20 minutes. A oblique incision was made ulnar to brachial radialis approximately 2 cm distal to the elbow volar crease. Skin and subcutaneous tissue was dissected sharply with a 15 blade scalpel. I then bluntly dissected in the subcutaneous plane and identified the lateral antebrachial cutaneous nerve. This was protected throughout the case. I then bluntly dissected down to the level of the radial tuberosity. There were several fibers left intact of the distal biceps however the majority of the tendon was retracted approximately 2 cm. I used a chapman elevator to elevate the remainder of the fibers of the tendon and retreated from the wound with a Allis clamp. I debrided the end of the tendon with significant mop ends and tendinosis noted. This was debrided to a healthy tendon stump. I then performed a running, locking Krak?w stitch with a #2 FiberWire. I then selected a point in the central portion of the radial tuberosity and drilled bicortically with a vendor supplied pin for the biceps button. I then utilized a 9 mm cannulated reamer to ream the near cortex of the radial tuberosity. I passed the sutures from the tendon through the biceps button sequentially. The ends of the suture were then passed through the distal portion of the tendon to eliminate creep in the distal tendon. The button was then passed bicortically, flipped to engage the far cortex of the radius. Tendon was able to be dunked nicely into the tenodesis site. Sutures were then tied over top of the tendon. I then placed a Bio-Tenodesis screw on the radial aspect of the tendon with excellent cortical purchase to reinforce the repair. Sutures were then cut proximal to the screw. The tourniquet was then deflated. Hemostasis was excellent. A field block was administered with 20 cc 0.75% plain Marcaine. Dermis was reapproximated buried 3-0 Vicryl suture and skin was closed with running subcuticular 4-0 Monocryl with Dermabond. Sterile compression dressing and simple sling was then applied. Patient tolerated procedure well without apparent complication. Patient was transferred to PACU in stable condition. Need for skilled escrow assistant: Deja Sweet PA-C was critical to the outcome of the case. During the course of the procedure the physician escrow assistant played a vital role. Her intimate knowledge of my steps in the procedure aided in safe and expedient completion of the procedure. The PA played a vital role in positioning particularly in obtaining the appropriate positioning. The PA was also vital in the retraction of soft tissues during the exposure and protecting vital structures. She also played a vital role in closure with my direct supervision Post Operative Plan: Weightbearing: Nonweightbearing operative extremity, range of motion as tolerated Antibiotics: Ancef 3 g x 1 dose preoperatively DVT Prophylaxis: Aspirin 81 mg twice daily to start tomorrow for 2 weeks Bailon: None Dressing: Okay to shower on postoperative day #2. X-Rays: None Pain Medication: Oxycodone Rx upon discharge Follow-up: 2 weeks post-operatively with me in the office. Plan to initiate physical therapy at 2 weeks for range of motion. No strengthening until 6 weeks postoperatively.
== END 2022-03-30 16:32 | disposition home or self-care (01) ==
LOC: SDC 10:52 → AC 10:53
PROVIDERS: PCP Nurse Practitioner Primary Care; Referring Provider Student in an Organized Health Care Education/Training Program; Visit Provider Student in an Organized Health Care Education/Training Program
PROC: (CPT 24341; principal; 2022-03-30 12:15)
DX: S46.211A Strain of muscle, fascia and tendon of other parts of biceps, right arm, initial encounter (principal); E66.01 Morbid (severe) obesity due to excess calories; Z68.44 Body mass index [BMI] 60.0-69.9, adult; X50.0XXA Overexertion from strenuous movement or load, initial encounter; Y93.89 Activity, other specified; Y99.0 Civilian activity done for income or pay; I51.7 Cardiomegaly; I10 Essential (primary) hypertension; F17.210 Nicotine dependence, cigarettes, uncomplicated; F17.220 Nicotine dependence, chewing tobacco, uncomplicated; Z71.3 Dietary counseling and surveillance; Z79.899 Other long term (current) drug therapy; Z20.822 Contact with and (suspected) exposure to COVID-19
CPT/HCPCS: 24341; 01714; 36415; 71046; 80048; 82962; 85027; 87426; 93005; C9803; J7120; J2405